=== PATIENT | female | born 1945 | race Two or more races ===

== ENCOUNTER 2020-07-04 06:39 | Outpatient (REF) | payer MEDICARE, MEDICAID, SELFPAY ==
[2020-07-04 07:20] LABS: MANUAL DIFF FLAG NO
[2020-07-04 07:22] LABS: Basophils Absolute Auto 0.1 X10*3/uL (0.0-0.2); Basophils Percent Auto 0.8 % (0-2); Eosinophils Absolute Auto 0.2 X10*3/uL (0.0-0.4); Eosinophils Percent Auto 2.2 % (0-4); Hematocrit 33.4 % (37-47); Hemoglobin 10.7 g/dl (12.0-16.0); Imm Gran Abs Auto 0.02 X10*3/uL (0.00-0.03); Imm Gran Pct Auto 0.2 % (0.0-0.4); Lymphocytes Absolute Auto 2.2 X10*3/uL (1.2-4.9); Lymphocytes Percent Auto 25.5 % (20-40); Mean Corpuscular Hemoglobin 30.1 pg (27.0-33.0); Mean Corpuscular Volume 94.1 fL (80-98); Mean Platelet Volume 9.2 fL (9.4-12.3); Monocytes Absolute Auto 0.7 X10*3/uL (0.1-1.2); Monocytes Percent Auto 8.3 % (2-11); Neutrophils Absolute Auto 5.5 X10*3/uL (2.0-8.3); Platelet Count 303 X10*3/uL (160-400); Red Blood Count 3.55 X10*6/uL (4.20-5.50); Red Cell Distribution Width 11.7 % (11.0-16.0); White Blood Count 8.8 X10*3/uL (4.8-10.8)
[2020-07-04 07:33] LABS: Estimated Average Glucose 108 mg/dL; Hemoglobin A1c % 5.4 %
[2020-07-04 08:26] LABS: Anion Gap 12 (12-20); Blood Urea Nitrogen 24 mg/dL (9-16); Calcium 9.7 mg/dL (8.4-10.2); Carbon Dioxide 27 mmol/L (22-29); Chloride 106 mmol/L (96-108); Cholesterol 115 mg/dL; Estimated Glomerular Filt Rate 54; Glucose Fasting 123 mg/dL (60-99); HDL Cholesterol 52 mg/dL; LDL Cholesterol Calculated 46 mg/dl; Potassium 5.2 mmol/L (3.3-5.1); Sodium 140 mmol/L (135-145); TSH reflex Free T4 1.08 uIU/mL (0.32-4.0); Triglycerides 85 mg/dL
== END 2020-07-04 06:40 | disposition home or self-care (01) ==
LOC: HO.LAB 06:39
PROVIDERS: Visit Provider Nurse Practitioner Family
DX: I10 Essential (primary) hypertension (principal); E08.59 Diabetes mellitus due to underlying condition with other circulatory complications
CPT/HCPCS: 36415; 80048; 80061; 83036; 84443; 85025

== ENCOUNTER 2021-02-13 06:25 | Outpatient (REF) | payer MEDICARE, MEDICAID, SELFPAY ==
[2021-02-13 07:13] LABS: Hematocrit 31.2 % (37-47); Hemoglobin 9.9 g/dl (12.0-16.0); Mean Corpuscular HGB Conc 31.7 g/dl (31.0-35.0); Mean Corpuscular Hemoglobin 29.6 pg (27.0-33.0); Mean Corpuscular Volume 93.4 fL (80-98); Mean Platelet Volume 9.1 fL (9.4-12.3); Platelet Count 296 X10*3/uL (160-400); Red Blood Count 3.34 X10*6/uL (4.20-5.50); Red Cell Distribution Width 12.8 % (11.0-16.0); White Blood Count 6.8 X10*3/uL (4.8-10.8)
[2021-02-13 07:16] LABS: Appearance Urine CLEAR; Color Urine YELLOW; Glucose Urine UA NEG (NEG); Leukocyte Esterase Urine 1+ (NEG); Nitrite Urine NEG (NEG); PH 5.5 (5.0-8.0); Urine Blood NEG (NEG); Urine Ketones NEG (NEG); Urine Protein NEG (NEG-TRACE)
[2021-02-13 07:37] LABS: RBC Urine 0-2 /HPF (0); Squamous Epithelial Cell Urine 1+ /LPF
[2021-02-13 07:40] LABS: Estimated Average Glucose 111 mg/dL; Hemoglobin A1c % 5.5 %
[2021-02-13 07:47] LABS: Alanine Aminotransferase 14 U/L (0-31); Albumin Level 3.9 g/dL (3.5-5.0); Alkaline Phosphatase 59 U/L (39-117); Anion Gap 12 (12-20); Aspartate Amino Transferase 15 U/L (5-31); Bilirubin Direct 0.3 mg/dL (0.0-0.5); Bilirubin Total 0.5 mg/dL (0.0-1.0); Blood Urea Nitrogen 25 mg/dL (9-16); Calcium 9.1 mg/dL (8.4-10.2); Carbon Dioxide 26 mmol/L (22-29); Chloride 108 mmol/L (96-108); Cholesterol 105 mg/dL; Estimated Glomerular Filt Rate 54; Glucose Random 114 mg/dL (60-115); HDL Cholesterol 48 mg/dL; LDL Cholesterol Calculated 43 mg/dl; Potassium 5.2 mmol/L (3.3-5.1); Sodium 141 mmol/L (135-145); Total Protein 6.5 g/dL (6.5-8.0); Triglycerides 72 mg/dL
[2021-02-13 08:02] LABS: Thyroid Stimulating Hormone 2.48 uIU/mL (0.32-4.0)
[2021-02-13 08:48] LABS: Erythrocyte Sedimentation Rate 18 MM/HR (0-20)
[2021-02-17 14:02] LABS: Vitamin D 25-OH, D2 <4 ng/mL; Vitamin D 25-OH, D3 30 ng/mL; Vitamin D 25-OH, Total 30 ng/mL (30-100)
== END 2021-02-13 06:26 | disposition home or self-care (01) ==
LOC: HO.LAB 06:25
PROVIDERS: PCP Internal Medicine; Visit Provider Internal Medicine
DX: E03.9 Hypothyroidism, unspecified (principal); E08.59 Diabetes mellitus due to underlying condition with other circulatory complications; E78.00 Pure hypercholesterolemia, unspecified; I10 Essential (primary) hypertension
CPT/HCPCS: 36415; 80048; 80061; 80076; 81001; 82306; 83036; 84443; 85027; 85652

== ENCOUNTER 2021-03-15 06:11 | Outpatient (REF) | payer MEDICARE, MEDICAID, SELFPAY ==
[2021-03-15 06:17] LABS: MANUAL DIFF FLAG NO
[2021-03-15 07:34] LABS: Appearance Urine CLEAR; Color Urine YELLOW; Glucose Urine UA NEG (NEG); Leukocyte Esterase Urine 2+ (NEG); Nitrite Urine NEG (NEG); Urine Blood NEG (NEG); Urine Ketones NEG (NEG); Urine Protein NEG (NEG-TRACE)
[2021-03-15 07:36] LABS: Basophils Absolute Auto 0.1 X10*3/uL (0.0-0.2); Basophils Percent Auto 0.7 % (0-2); Eosinophils Absolute Auto 0.4 X10*3/uL (0.0-0.4); Eosinophils Percent Auto 4.4 % (0-4); Hematocrit 33.2 % (37-47); Hemoglobin 10.9 g/dl (12.0-16.0); Imm Gran Abs Auto 0.03 X10*3/uL (0.00-0.03); Imm Gran Pct Auto 0.4 % (0.0-0.4); Immature Retic Fraction 8.9 % (3.0-15.9); Lymphocytes Absolute Auto 2.5 X10*3/uL (1.2-4.9); Lymphocytes Percent Auto 30.8 % (20-40); Mean Corpuscular HGB Conc 32.8 g/dl (31.0-35.0); Mean Corpuscular Hemoglobin 29.7 pg (27.0-33.0); Mean Corpuscular Volume 90.5 fL (80-98); Mean Platelet Volume 9.4 fL (9.4-12.3); Monocytes Absolute Auto 0.9 X10*3/uL (0.1-1.2); Monocytes Percent Auto 10.5 % (2-11); Neutrophils Absolute Auto 4.4 X10*3/uL (2.0-8.3); Neutrophils Percent Auto 53.2 % (45-73); Platelet Count 321 X10*3/uL (160-400); Red Blood Count 3.67 X10*6/uL (4.20-5.50); Red Cell Distribution Width 12.3 % (11.0-16.0); Retic HGB Equivalent 33.7 pg (30.0-35.0); Reticulocyte Percent 1.1 % (0.5-1.8); Reticulocytes Absolute 0.039 X10*6/uL (0.026-0.095); White Blood Count 8.2 X10*3/uL (4.8-10.8)
[2021-03-15 07:46] LABS: RBC Urine 0-2 /HPF (0); Renal Epithelial Cells Urine 1+ /LPF; Squamous Epithelial Cell Urine TRACE /LPF
[2021-03-15 07:50] LABS: Alanine Aminotransferase 13 U/L (0-31); Albumin Level 4.3 g/dL (3.5-5.0); Alkaline Phosphatase 58 U/L (39-117); Anion Gap 16 (12-20); Aspartate Amino Transferase 18 U/L (5-31); Bilirubin Total 0.4 mg/dL (0.0-1.0); Blood Urea Nitrogen 35 mg/dL (9-16); Calcium 9.9 mg/dL (8.4-10.2); Carbon Dioxide 24 mmol/L (22-29); Chloride 105 mmol/L (96-108); Estimated Glomerular Filt Rate 45; Glucose Fasting 117 mg/dL (60-99); Potassium 5.6 mmol/L (3.3-5.1); Sodium 139 mmol/L (135-145); Total Protein 7.4 g/dL (6.5-8.0)
== END 2021-03-15 06:12 | disposition home or self-care (01) ==
LOC: HO.LAB 06:11
PROVIDERS: PCP Internal Medicine; Visit Provider Nurse Practitioner Family
DX: D64.9 Anemia, unspecified (principal); I10 Essential (primary) hypertension; E78.00 Pure hypercholesterolemia, unspecified
CPT/HCPCS: 36415; 80053; 81001; 81003; 85025; 85045

== ENCOUNTER 2021-03-20 06:15 | Outpatient (REF) | payer MEDICARE, MEDICAID, SELFPAY ==
[2021-03-20 07:39] LABS: Appearance Urine CLEAR; Color Urine STRAW; Glucose Urine UA NEG (NEG); Leukocyte Esterase Urine 2+ (NEG); Nitrite Urine NEG (NEG); PH 5.5 (5.0-8.0); Specific Gravity - Urine <= 1.005 (1.005-1.025); Urine Blood NEG (NEG); Urine Ketones NEG (NEG); Urine Protein NEG (NEG-TRACE)
[2021-03-20 07:49] LABS: Potassium 5.4 mmol/L (3.3-5.1)
[2021-03-20 08:03] LABS: Bacteria Urine TRACE /LPF; RBC Urine 0-2 /HPF (0); Squamous Epithelial Cell Urine 1+ /LPF
== END 2021-03-20 06:16 | disposition home or self-care (01) ==
LOC: HO.LAB 06:15
PROVIDERS: Nurse Practitioner Family; PCP Internal Medicine; Visit Provider Internal Medicine
DX: E87.5 Hyperkalemia (principal)
CPT/HCPCS: 36415; 81001; 84132

== ENCOUNTER 2021-06-07 15:36 | Outpatient (REF) | payer MEDICARE, MEDICAID, SELFPAY ==
--- NOTE | ~2021-06-07 | XR_ITS ---
EXAMINATION: XR CHEST CLINICAL INFORMATION: Covid infection COMPARISON: None TECHNIQUE: 2 views of the chest were obtained. FINDINGS: The cardiac and mediastinal contours are normal. There is minimal linear scarring or subsegmental atelectasis at the left lung base. The lungs are otherwise clear. There is no pleural effusion or pneumothorax. There are mild degenerative changes of the spine curvature of the lower thoracic spine to the left. XR/XR chest 2V IMPRESSION: No evidence for acute disease in the chest. Minimal scarring or subsegmental atelectasis at the left lung base.
== END 2021-06-07 15:37 | disposition home or self-care (01) ==
LOC: HO.XRAY 15:36
PROVIDERS: Visit Provider Internal Medicine
DX: U07.1 COVID-19 (principal)
CPT/HCPCS: 71046

== ENCOUNTER 2021-09-11 05:56 | Outpatient (REF) | payer MEDICARE, MEDICAID, SELFPAY ==
[2021-09-11 08:38] LABS: Color Urine YELLOW; Glucose Urine UA NEG (NEG); Leukocyte Esterase Urine 3+ (NEG); Nitrite Urine NEG (NEG); PH 5.5 (5.0-8.0); Urine Blood NEG (NEG); Urine Ketones NEG (NEG); Urine Protein NEG (NEG-TRACE)
[2021-09-11 08:40] LABS: Appearance Urine HAZY
[2021-09-11 08:54] LABS: RBC Urine 0 /HPF (0)
[2021-09-11 08:55] LABS: Bacteria Urine TRACE /LPF; Squamous Epithelial Cell Urine 1+ /LPF
[2021-09-11 08:56] LABS: Mucus Urine 1+ /LPF; Renal Epithelial Cells Urine 1+ /LPF
== END 2021-09-11 05:57 | disposition home or self-care (01) ==
LOC: HO.LAB 05:56
PROVIDERS: PCP Internal Medicine; Visit Provider Internal Medicine
DX: I10 Essential (primary) hypertension (principal); E78.00 Pure hypercholesterolemia, unspecified; E03.9 Hypothyroidism, unspecified; E08.59 Diabetes mellitus due to underlying condition with other circulatory complications
CPT/HCPCS: 81001

== ENCOUNTER 2021-12-19 06:32 | Outpatient (REF) | payer MEDICARE, MEDICAID, SELFPAY ==
[2021-12-19 07:32] LABS: Hematocrit 30.4 % (37.0-47.0); Mean Corpuscular HGB Conc 32.9 g/dl (31.0-35.0); Mean Corpuscular Hemoglobin 30.6 pg (27.0-33.0); Mean Platelet Volume 9.3 fL (9.4-12.3); Platelet Count 311 X10*3/uL (160-400); Red Blood Count 3.27 X10*6/uL (4.20-5.50); Red Cell Distribution Width 12.3 % (11.0-16.0); White Blood Count 7.8 X10*3/uL (4.8-10.8)
[2021-12-19 07:42] LABS: Estimated Average Glucose 114 mg/dL; Hemoglobin A1c % 5.6 %
[2021-12-19 07:55] LABS: Anion Gap 13 (12-20); Blood Urea Nitrogen 26 mg/dL (9-16); Calcium 8.9 mg/dL (8.4-10.2); Carbon Dioxide 25 mmol/L (22-29); Chloride 105 mmol/L (96-108); Cholesterol 117 mg/dL; Estimated Glomerular Filt Rate 56; Glucose Random 118 mg/dL (60-115); HDL Cholesterol 51 mg/dL; LDL Cholesterol Calculated 54 mg/dl; Potassium 5.5 mmol/L (3.3-5.1); Sodium 137 mmol/L (135-145); Triglycerides 62 mg/dL
[2021-12-19 08:20] LABS: Thyroid Stimulating Hormone 1.84 uIU/mL (0.32-4.0)
[2021-12-19 08:59] LABS: Appearance Urine CLEAR; Color Urine YELLOW; Glucose Urine UA NEG (NEG); Leukocyte Esterase Urine 1+ (NEG); Nitrite Urine NEG (NEG); PH 5.5 (5.0-8.0); Specific Gravity - Urine <= 1.005 (1.005-1.025); Urine Blood NEG (NEG); Urine Ketones NEG (NEG); Urine Protein NEG (NEG-TRACE)
[2021-12-19 09:10] LABS: Bacteria Urine TRACE /LPF; RBC Urine 0 /HPF (0); Renal Epithelial Cells Urine TRACE /LPF; Squamous Epithelial Cell Urine 1+ /LPF
[2021-12-19 09:26] LABS: Creatinine Urine 35.62 mg/dL
== END 2021-12-19 06:33 | disposition home or self-care (01) ==
LOC: HO.LAB 06:32
PROVIDERS: PCP Internal Medicine; Visit Provider Internal Medicine
DX: D64.9 Anemia, unspecified (principal); E11.65 Type 2 diabetes mellitus with hyperglycemia
CPT/HCPCS: 36415; 80048; 80061; 81001; 81003; 82043; 83036; 84443; 85027

== ENCOUNTER 2022-06-22 06:07 | Outpatient (REF) | payer MEDICARE, MEDICAID, SELFPAY ==
[2022-06-22 07:54] LABS: Appearance Urine Clear; Color Urine Yellow; Glucose Urine UA Negative (Negative); Leukocyte Esterase Urine Trace (Negative); Nitrite Urine Negative (Negative); PH 7.5 (5.0-9.0); Specific Gravity - Urine <= 1.005 (1.005-1.025); UMIC TRIGGER UA YES; Urine Blood Negative (Negative); Urine Ketones Negative (Negative); Urine Protein Negative (Neg-Trace)
[2022-06-22 07:57] LABS: Bacteria Urine None Seen (None Seen); Hyaline Casts Urine 0-2 /LPF (0-2); RBC Urine 0-2 /HPF (0-2); Squamous Epithelial Cell Urine 0-2 /HPF (0-2); WBC Urine 0-5 /HPF (0-5)
== END 2022-06-22 06:08 | disposition home or self-care (01) ==
LOC: HO.LAB 06:07
PROVIDERS: PCP Internal Medicine; Visit Provider Internal Medicine
DX: E11.65 Type 2 diabetes mellitus with hyperglycemia (principal); D64.9 Anemia, unspecified
CPT/HCPCS: 81001

== ENCOUNTER 2022-12-19 07:44 | Outpatient (REF) | payer OTHER, MEDICAID, SELFPAY ==
[2022-12-19 08:33] LABS: Hematocrit 35.8 % (37.0-47.0); Hemoglobin 11.4 g/dl (12.0-16.0); Mean Corpuscular HGB Conc 31.8 g/dl (31.0-35.0); Mean Corpuscular Hemoglobin 29.3 pg (27.0-33.0); Mean Platelet Volume 8.9 fL (9.4-12.3); Platelet Count 312 X10*3/uL (160-400); Red Blood Count 3.89 X10*6/uL (4.20-5.50); Red Cell Distribution Width 12.1 % (11.0-16.0)
[2022-12-19 09:14] LABS: Alanine Aminotransferase 13 U/L (0-31); Albumin Level 4.2 g/dL (3.5-5.0); Alkaline Phosphatase 49 U/L (39-117); Anion Gap 15 (12-20); Aspartate Amino Transferase 19 U/L (5-31); Bilirubin Direct 0.2 mg/dL (0.0-0.5); Bilirubin Total 0.5 mg/dL (0.0-1.0); Blood Urea Nitrogen 31 mg/dL (9-16); Calcium 9.7 mg/dL (8.4-10.2); Carbon Dioxide 27 mmol/L (22-29); Chloride 103 mmol/L (96-108); Cholesterol 132 mg/dL; Estimated Glomerular Filt Rate 44; Glucose Random 115 mg/dL (60-115); HDL Cholesterol 54 mg/dL; LDL Cholesterol Calculated 65 mg/dl; Potassium 5.8 mmol/L (3.3-5.1); Sodium 139 mmol/L (135-145); Total Protein 7.6 g/dL (6.5-8.0); Triglycerides 68 mg/dL
[2022-12-19 09:18] LABS: Thyroid Stimulating Hormone 1.24 uIU/mL (0.32-4.0)
[2022-12-19 11:17] LABS: Creatinine Urine 73.97 mg/dL
== END 2022-12-19 07:45 | disposition home or self-care (01) ==
LOC: HO.LAB 07:44
PROVIDERS: PCP Internal Medicine; Visit Provider Internal Medicine
DX: E11.65 Type 2 diabetes mellitus with hyperglycemia (principal)
CPT/HCPCS: 36415; 80048; 80061; 80076; 82043; 84443; 85027

== ENCOUNTER 2023-01-03 10:41 | Outpatient (AMB) | payer OTHER, SELFPAY ==
--- NOTE | 2023-01-03 10:47 | MHC.PC.OV ---
Vital Signs 01/03/23 10:49 Height 4 ft 11 in Weight 104 lb 2 oz BMI 21.0 BP 100/60 Blood Pressure Location Lt brachial Position Sitting Pulse 67 Pulse Source Pulse Oximeter Pulse Oximetry (%) 98 Oxygen Delivery Method Room Air Intake Visit Reasons: F/U Intake Note: Patient is here to follow up on DM, HTN, Hypothyroidism. Receiving Dock Checker Required: Yes Receiving Dock Checker Language: Field Enumerator Name: Jessica (Shanon) Information Interpreted: non-clinical & clinical Flame Channeler: Present Accompanied by: Daughter Allergies No Known Allergies Allergy (Verified 01/22/23 15:26) Medication List - Last Reconciled 01/22/23 by Wilfredo Cole MD amlodipine 5 mg PO DAILY ascorbic acid (vitamin C) 500 mg PO DAILY atorvastatin 20 mg PO DAILY blood sugar diagnostic ([employer] Ultra Test strips) test daily blood-glucose meter ([employer] Ultra2 Meter) test daily carvedilol 25 mg PO BID cholecalciferol (vitamin D3) 25 mcg PO DAILY clonidine HCl 0.1 mg PO BID hydralazine 100 mg PO TID isosorbide mononitrate ER 120 mg PO DAILY levothyroxine 50 mcg PO DAILY lisinopril 20 mg PO BID 3 months mecobalamin (vitamin B12) 1,000 mcg sublingual DAILY metformin 1,000 mg (2 x 500 mg) PO BID Tobacco use date assessed: 01/03/23 Fall risk assessment: No Falls in past year Last assessed Fall Risk: 01/03/23 Dental Screening Dental Screen Date: 01/03/23 Did you have a dental visit in the last 12 months?: Yes Did you have a dental problem in the last 6 months where you did not have access to dental care?: No Was dental information given to patient?: Patient has dentist HPI F/U HPI Details 77-year-old female presents to the office to discuss her chronic medical conditions. The last A1c was 5.6 . Non compliant with medications, diet or exercise. Reports no symptoms of headache, blurred vision or increased frequency of urination. No symptoms of fatigue. No nausea or vomiting. [facility] Medical History Diabetes Encounter for medication review High cholesterol Hypertension Hypothyroidism Surgical History History of cataract surgery Family History Mother High blood pressure High cholesterol Thyroid disease Father High blood pressure Thyroid disease Social History Housing: House Alcohol intake: never Patient Tobacco Use Status: Never used Tobacco e-Cigarette/Vaping Use: Never Used Second Hand Smoke Exposure: No service: No Current occupational status: retired Cognitive needs: No Hearing needs: No Vision needs: Yes (glasses) Questionnaire Thrive Questionnaire Date Thrive assessed: 07/04/22 JODIE-7 AMB Questionnaire JODIE-7 Date JODIE - 7 assessed: 07/04/22 Source: Developed by Drs. Domingo Beltrán, Adriana Serrano, Steve De La Cruz and colleagues, with an educational yodit from [employer]. Physical exam (Primary Care) Vital Signs: Last Vital Signs Pulse 67 01/03/23 10:49 BP 100/60 01/03/23 10:49 Pulse Ox 98 01/03/23 10:49 Oxygen Delivery Method Room Air 01/03/23 10:49 BMI result Body Mass Index 21.0 Tobacco/Smoking Status: Tobacco use Status Tobacco use date assessed 01/03/23 01/03/23 11:01 Patient Tobacco Use Status Never used Tobacco 01/03/23 11:01 e-Cigarette/Vaping Use Never Used 01/03/23 11:01 Thrive Assessment: Date of Thrive Assessment Date Thrive assessed 07/04/22 01/03/23 11:01 Const General: cooperative, healthy appearing and comfortable [facility] Head: Yes normal to inspection and Yes atraumatic Eyes General: appearance normal, both eyes and all related structures Neck Neck: Yes normal visual inspection and Yes full ROM Chest Chest palpation & inspection: normal inspection of the chest Resp Effort & Inspection: normal respiratory effort Auscultation: clear to auscultation bilaterally Cardio Jugular venous distension: no JVD Palpation: normal PMI Rate: regular rate Heart sounds: S1 normal heart sound present and S2 normal heart sound present GI Palpation (GI): Soft to palpation and No hepatosplenomegaly present Extrem General: Yes normal to inspection and Yes full ROM Results AMB Hemoglobin A1c AMB Hemoglobin A1c 5.6 % Last Edit by JADE Willingham on 01/03/23 11:01 Results Reviewed Results Reviewed: Laboratory Last Values Hgb A1c (Clinic) 5.6 % (4.0-6.0) 01/03/23 10:47 Assessment and Plan Assessment & Plan (1) Type 2 diabetes mellitus with hyperglycemia: Code(s): E11.65 - Type 2 diabetes mellitus with hyperglycemia Plan A1c is in range. Continue medications at same dosage. Orders: Orders AMB Hemoglobin A1c 01/03/23 E11.65 - Type 2 diabetes mellitus with hyperglycemia, E11.9 - Type 2 diabetes mellitus without complications Coding Level of Care Code Est Pt Level 3 (66322) Diagnoses Type 2 diabetes mellitus with hyperglycemia E11.65
[2023-01-03 10:49] VITALS: BP 100/60; PULSE 67; O2SAT 98; BMI 21.0
== END 2023-01-03 11:29 | disposition home or self-care (01) ==
PROVIDERS: Visit Provider Internal Medicine
DX: E11.65 Type 2 diabetes mellitus with hyperglycemia (principal)
CPT/HCPCS: 83036; 99213

== ENCOUNTER 2023-04-05 15:47 | Outpatient (AMB) | payer OTHER, SELFPAY ==
--- NOTE | 2023-04-05 16:10 | HO.NEPHOV ---
HPI HPI Comments History of Present Illness Details I had the privilege of seeing Shirley in follow-up of her hypertension. She was accompanied by her daughter. Her blood pressure had been well controlled on current medication regimen. She has history of retinopathy. She has no significant proteinuria now. She does not have any orthostatic symptoms, chest pain, shortness of breath, proximal nocturnal dyspnea, orthopnea, pedal edema. She is not taking any nonsteroidal anti-inflammatory medications. She is compliant with her medications and is trying to maintain low-sodium diet. She keeps herself well hydrated. Her blood sugar control is excellent. [facility] Medical History (Updated 04/05/23 @ 16:42 by Edy Lyles MD) Serum potassium elevated Encounter for medication review Diabetes High cholesterol Hypothyroidism Hypertension Surgical History History of cataract surgery Family History Mother High blood pressure High cholesterol Thyroid disease Father High blood pressure Thyroid disease Housing: House Alcohol intake: never Patient Tobacco Use Status: Never used Tobacco e-Cigarette/Vaping Use: Never Used Second Hand Smoke Exposure: No service: No Current occupational status: retired Cognitive needs: No Hearing needs: No Vision needs: Yes (glasses) Vital Signs 04/05/23 16:11 Height 4 ft 11 in Weight 106 lb 2 oz BMI 21.4 BP 170/60 H Blood Pressure Location Lt brachial Position Sitting Pulse 74 Pulse Source Pulse Oximeter Physical Exam Vital Signs: Last Vital Signs Pulse 74 04/05/23 16:11 BP 170/60 H 04/05/23 16:11 BMI result Body Mass Index 21.4 Const General: comfortable and no acute distress Orientation/consciousness: patient oriented x3 HEENT Head: Yes normocephalic Mouth: Normal oral and palatal mucosa present Eyes EOM: EOMs intact bilaterally Neck Neck: Yes supple Resp Auscultation: clear to auscultation bilaterally Cardio Jugular venous distension: no JVD Rate: regular rate GI Palpation (GI): Soft to palpation Auscultation: normal bowel sounds General: Yes no CVA tenderness Back/Spine/Pelvis Back: no CVA tenderness Skin General skin exam: no rashes or lesions noted Neuro General: patient oriented x3 and moves all extremities Extrem General: Yes no pedal edema Assessment & Plan Assessment & Plan (1) Serum potassium elevated: Code(s): E87.5 - Hyperkalemia (2) Hypertension: Code(s): I10 - Essential (primary) hypertension Qualifiers: Hypertension type: essential hypertension Qualified Code(s): I10 - Essential (primary) hypertension Plan Shirley has longstanding hypertension. Her blood pressure is well controlled now. She is tolerating medications well. She does not have any significant proteinuria. She has retinopathy but no clinical signs of heart failure. She has history of hyperkalemia. I have asked to repeat her renal functions, electrolytes and urine protein creatinine ratio. I did not make any medication changes today. All her and her daughter's questions were answered. Follow-up appointment was given. Time spent for retrieval of data, patient encounter and documentation 21 minutes. Orders: Orders Electrolytes 04/05/23 N18.30 - Chronic kidney disease, stage 3 unspecified, E87.5 - Hyperkalemia, I10 - Essential (primary) hypertension Creatinine 04/05/23 N18.30 - Chronic kidney disease, stage 3 unspecified, E87.5 - Hyperkalemia, I10 - Essential (primary) hypertension Protein Creatinine Ratio, Ur 04/05/23 N18.30 - Chronic kidney disease, stage 3 unspecified, E87.5 - Hyperkalemia, I10 - Essential (primary) hypertension Calcium 04/05/23 N18.30 - Chronic kidney disease, stage 3 unspecified, E87.5 - Hyperkalemia, I10 - Essential (primary) hypertension Blood Urea Nitrogen 04/05/23 N18.30 - Chronic kidney disease, stage 3 unspecified, E87.5 - Hyperkalemia, I10 - Essential (primary) hypertension Coding Level of Care Code Est Pt Level 3 (68809) Diagnoses Serum potassium elevated E87.5 Essential hypertension I10 Hypertension type: essential hypertension
[2023-04-05 16:11] VITALS: BP 170/60; PULSE 74; BMI 21.4
== END 2023-04-05 16:43 | disposition home or self-care (01) ==
PROVIDERS: PCP Internal Medicine; Visit Provider Internal Medicine Nephrology
DX: E87.5 Hyperkalemia (principal); I10 Essential (primary) hypertension
CPT/HCPCS: 99213

== ENCOUNTER → 2023-04-05 15:47 | Outpatient (BNVA) | payer OTHER, SELFPAY | PROVIDERS: PCP Internal Medicine; Visit Provider Internal Medicine Nephrology | DX: E78.5 Hyperlipidemia, unspecified (principal); I10 Essential (primary) hypertension | CPT/HCPCS: 99212 ==

== ENCOUNTER 2023-04-11 14:21 | Outpatient (AMB) | payer OTHER, MEDICAID, SELFPAY ==
--- NOTE | 2023-04-11 14:27 | MHC.PC.OV ---
Vital Signs 04/11/23 14:28 Height 4 ft 11 in Weight 104 lb 6 oz BMI 21.1 BP 90/50 L Blood Pressure Location Lt brachial Position Sitting Pulse 67 Pulse Source Pulse Oximeter Pulse Oximetry (%) 97 Oxygen Delivery Method Room Air Intake Visit Reasons: 3mth f/u Intake Note: Patient is here to follow up on DM, CKD, HTN. Tassel Making Machine Operator Required: Yes Tassel Making Machine Operator Language: Dinkey Operator Slag Name: Jessica (daughter) Information Interpreted: non-clinical & clinical Reject Opener: Present Accompanied by: Daughter Allergies No Known Allergies Allergy (Verified 04/11/23 14:28) Tobacco use date assessed: 04/11/23 Fall risk assessment: No Falls in past year Last assessed Fall Risk: 04/11/23 Dental Screening Dental Screen Date: 04/11/23 Did you have a dental visit in the last 12 months?: Yes Did you have a dental problem in the last 6 months where you did not have access to dental care?: No Was dental information given to patient?: Patient has dentist HPI 3mth f/u HPI Details 77-year-old female presents to the office to discuss her chronic medical conditions. She is accompanied by her daughter. Patient is at baseline state of health. Able to function and do activities of daily living. She is able to do most of her work independently. [facility] Medical History (Updated 04/05/23 @ 16:42 by Edy Lyles MD) Serum potassium elevated Encounter for medication review Diabetes High cholesterol Hypothyroidism Hypertension Surgical History History of cataract surgery Family History Mother High blood pressure High cholesterol Thyroid disease Father High blood pressure Thyroid disease Social History Housing: House Alcohol intake: never Patient Tobacco Use Status: Never used Tobacco e-Cigarette/Vaping Use: Never Used Second Hand Smoke Exposure: No service: No Current occupational status: retired Cognitive needs: No Hearing needs: No Vision needs: Yes (glasses) Questionnaire PHQ-9 Over the last 2 weeks, how often have you been bothered by any of the following problems? Depression Screening Interpretation: Negative Depression Screening Done: Yes Source: Developed by Drs. Domingo Beltrán, Adriana Serrano, Steve De La Cruz and colleagues, with an educational yodit from [employer]. Thrive Questionnaire Date Thrive assessed: 07/04/22 Currently or been in a relationship where the following occur: no concerns reported JODIE-7 AMB Questionnaire JODIE-7 Date JODIE - 7 assessed: 07/04/22 Source: Developed by Adriana Gay, Steve De La Cruz and colleagues, with an educational yodit from [employer]. Physical exam (Primary Care) Vital Signs: Last Vital Signs Pulse 67 04/11/23 14:28 BP 90/50 L 04/11/23 14:28 Pulse Ox 97 04/11/23 14:28 Oxygen Delivery Method Room Air 04/11/23 14:28 Care Plan Goal for BP management: Blood pressure is in range. BMI result Body Mass Index 21.1 Tobacco/Smoking Status: Tobacco use Status Tobacco use date assessed 04/11/23 04/11/23 14:39 Patient Tobacco Use Status Never used Tobacco 04/11/23 14:39 e-Cigarette/Vaping Use Never Used 04/11/23 14:39 Depression Screening Interpretation: Negative Thrive Assessment: Date of Thrive Assessment Date Thrive assessed 07/04/22 04/11/23 14:39 Currently or been in a relationship where the following occur: no concerns reported Advance Care Planning discussion: Exists, not on file Date of discussion: 04/11/23 Who was present: Patient and daughter. Time spent: 1-15 minutes, not on file Const General: cooperative and healthy appearing Nutritional Appearance: well nourished Orientation/consciousness: patient oriented x3 Limitations: no limitations HENMT Head: Yes normal to inspection Eyes General: appearance normal, both eyes and all related structures Neck Neck: Yes normal visual inspection Chest Chest palpation & inspection: normal palpation of entire chest wall Resp Effort & Inspection: normal respiratory effort Neuro General: patient oriented x3 Office Procedures Flu Questionnaire Does the patient have a severe egg allergy?: No Does the patient have severe life threatening allergies?: No Does the patient have a fever or illness today?: No Has the patient ever had Guillain-[place] Syndrome?: No Has the patient ever had any past reaction to a flu shot?: No Results AMB Hemoglobin A1c AMB Hemoglobin A1c 5.0 % Last Edit by JADE Willingham on 04/11/23 14:41 Immunizations flu vacc [id number] 6mos up(PF) 60 mcg(15 mcgx4)/0.5 mL IM syringe Performing Provider: Wilfredo Cole MD Performing Location: [facility] Administered by: SHAYY Gomez on 04/11/23 14:59 Dose Route Admin Location Dispensed Lot Number Expiration Date NDC Manager Management 0.5 mL IM Left Deltoid 0.5 mL [id number] 11/24/23 44309-008-18 [place] VIS Given Date VIS Provided VIS Publication Date 04/11/23 Single Vaccine 20 Eligibility Eligibility Date Funding Source Not VFC Eligible 04/11/23 Private Results Reviewed Results Reviewed: Laboratory Last Values Hgb A1c (Clinic) 5.0 % (4.0-6.0) 04/11/23 14:26 Assessment and Plan Assessment & Plan (1) Diabetes: Code(s): E11.9 - Type 2 diabetes mellitus without complications Qualifiers: Diabetes mellitus type: due to underlying condition Diabetes mellitus nursing home insulin use: without nursing home use Diabetes mellitus complication status: with circulatory complication Diabetes mellitus complication detail: with other circulatory complications Qualified Code(s): E08.59 - 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 Continue medications at same dosage. Continues to decline screening colonoscopy and mammograms. Orders: Orders AMB Hemoglobin A1c Today E11.65 - Type 2 diabetes mellitus with hyperglycemia Influenza [id number] Immunization Today Z23 - Encounter for immunization Coding Level of Care Code Est Pt Level 4 (82580) Diagnoses Diabetes mellitus due to underlying condition with other circulatory complication, without long-term current use of insulin E08.59 Diabetes mellitus type: due to underlying condition Diabetes mellitus local intermodal truck driver insulin use: without nursing home use Diabetes mellitus complication status: with circulatory complication Diabetes mellitus complication detail: with other circulatory complications Additional Codes Vital Signs *Quality* - Advance Care Planning discussion: Exists, not on file ([id number]) Vital Signs *Quality* - Time spent: 1-15 minutes, not on file ([id number])
[2023-04-11 14:28] VITALS: BP 90/50; PULSE 67; O2SAT 97; BMI 21.1
== END 2023-04-11 15:08 | disposition home or self-care (01) ==
PROVIDERS: PCP Internal Medicine; Visit Provider Internal Medicine
DX: E11.65 Type 2 diabetes mellitus with hyperglycemia (principal); Z23 Encounter for immunization; Z00.00 Encounter for general adult medical examination without abnormal findings
CPT/HCPCS: 1124F; 83036; 90471; 90686; 99214

== ENCOUNTER 2023-06-28 06:06 | Outpatient (REF) | payer OTHER, SELFPAY ==
[2023-06-28 08:02] LABS: Anion Gap 16 (12-20); Blood Urea Nitrogen 24 mg/dL (9-16); Calcium 9.4 mg/dL (8.4-10.2); Carbon Dioxide 25 mmol/L (22-29); Chloride 105 mmol/L (96-108); Estimated Glomerular Filt Rate 46; Potassium 4.7 mmol/L (3.3-5.1); Sodium 141 mmol/L (135-145)
[2023-06-28 09:04] LABS: Total Protein Urine Random 30 mg/dL (<12)
== END 2023-06-28 06:07 | disposition home or self-care (01) ==
LOC: HO.LAB 06:06
PROVIDERS: PCP Internal Medicine; Visit Provider Internal Medicine Nephrology
DX: I12.9 Hypertensive chronic kidney disease with stage 1 through stage 4 chronic kidney disease, or unspecified chronic kidney disease (principal); N18.30 Chronic kidney disease, stage 3 unspecified; E87.5 Hyperkalemia
CPT/HCPCS: 36415; 80051; 82310; 82565; 82570; 84156; 84520

== ENCOUNTER 2023-07-05 15:30 | Outpatient (AMB) | payer OTHER, SELFPAY ==
[2023-07-05 15:48] VITALS: BP 128/70; PULSE 78; O2SAT 96; BMI 21.0
--- NOTE | 2023-07-05 15:48 | HO.NEPHOV_ITS ---
HPI HPI Comments History of Present Illness Details I had the privilege of seeing Shirley in follow-up of her hypertension. She was accompanied by her daughter. Her blood pressure had been well controlled on current medication regimen. She has history of retinopathy. She has no significant proteinuria now. She does not have any orthostatic symptoms, chest pain, shortness of breath, proximal nocturnal dyspnea, orthopnea, pedal edema. She is not taking any nonsteroidal anti-inflammatory medications. She is compliant with her medications and is trying to maintain low-sodium diet. She keeps herself well hydrated. Her blood sugar control is excellent. Her hyperkalemia has resolved. Her renal function is at baseline. She is off ACEI now and has proteinuria. [facility] Medical History (Updated 07/08/23 @ 13:13 by Edy Lyles MD) Serum potassium elevated Encounter for medication review Diabetes High cholesterol Hypothyroidism Hypertension Surgical History History of cataract surgery Family History Mother High blood pressure High cholesterol Thyroid disease Father High blood pressure Thyroid disease Social History Housing: House Alcohol intake: never Patient Tobacco Use Status: Never used Tobacco e-Cigarette/Vaping Use: Never Used Second Hand Smoke Exposure: No service: No Current occupational status: retired Cognitive needs: No Hearing needs: No Vision needs: Yes (glasses) Vital Signs 07/05/23 15:48 Height 4 ft 11 in Weight 104 lb 2 oz BMI 21.0 BP 128/70 Blood Pressure Location Lt brachial Position Sitting Pulse 78 Pulse Source Pulse Oximeter Pulse Oximetry (%) 96 Oxygen Delivery Method Room Air Physical Exam Vital Signs: Last Vital Signs Pulse 78 07/05/23 15:48 BP 128/70 07/05/23 15:48 Pulse Ox 96 07/05/23 15:48 Oxygen Delivery Method Room Air 07/05/23 15:48 BMI result Body Mass Index 21.0 Const General: comfortable and no acute distress Orientation/consciousness: patient oriented x3 HEENT Head: Yes normocephalic Mouth: Normal oral and palatal mucosa present Eyes EOM: EOMs intact bilaterally Neck Neck: Yes supple Resp Auscultation: clear to auscultation bilaterally Cardio Jugular venous distension: no JVD Rate: regular rate GI Palpation (GI): Soft to palpation Auscultation: normal bowel sounds General: Yes no CVA tenderness Back/Spine/Pelvis Back: no CVA tenderness Skin General skin exam: no rashes or lesions noted Neuro General: patient oriented x3 and moves all extremities Extrem General: Yes no pedal edema Assessment & Plan Assessment & Plan (1) CKD (chronic kidney disease) stage 3, GFR 30-59 ml/min: Code(s): N18.30 - Chronic kidney disease, stage 3 unspecified Qualifiers: Chronic kidney disease stage 3 subtype: stage 3a (GFR 45-59) Qualified Code(s): N18.31 - Chronic kidney disease, stage 3a (2) Diabetic nephropathy: Code(s): E11.21 - Type 2 diabetes mellitus with diabetic nephropathy Qualifiers: Diabetes mellitus type: type 2 Qualified Code(s): E11.21 - Type 2 diabetes mellitus with diabetic nephropathy (3) Hypertension: Code(s): I10 - Essential (primary) hypertension Qualifiers: Hypertension type: essential hypertension Qualified Code(s): I10 - Essential (primary) hypertension Plan Shirley has longstanding hypertension. Her blood pressure is well controlled now. She is tolerating medications well. She does have significant proteinuria. She has retinopathy but no clinical signs of heart failure. She has history of hyperkalemia which has been resolved. She is off ACEI. Her BS and BP are at goal now. I plan to reintroduce ACEI with K lowering medication at the next visit. I have asked to repeat her renal functions, electrolytes and urine protein creatinine ratio. I did not make any medication changes today. All her and her daughter's questions were answered. Follow-up appointment was given. Orders: Orders Blood Urea Nitrogen 07/05/23 N18.30 - Chronic kidney disease, stage 3 unspecified Creatinine 07/05/23 N18.30 - Chronic kidney disease, stage 3 unspecified Electrolytes 07/05/23 N18.30 - Chronic kidney disease, stage 3 unspecified Coding Level of Care Code Est Pt Level 3 (69442) Diagnoses Stage 3a chronic kidney disease N18.31 Chronic kidney disease stage 3 subtype: stage 3a (GFR 45-59) Diabetic nephropathy associated with type 2 diabetes mellitus E11.21 Diabetes mellitus type: type 2 Essential hypertension I10 Hypertension type: essential hypertension Results Reviewed Nephrology Results: Hgb 11.4 g/dl (12.0-16.0) L 12/19/22 WBC 7.0 X10*3/uL (4.8-10.8) 12/19/22 Plt Count 312 X10*3/uL (160-400) 12/19/22 Sodium 141 mmol/L (135-145) 06/28/23 Potassium 4.7 mmol/L (3.3-5.1) 06/28/23 Chloride 105 mmol/L (96-108) 06/28/23 Carbon Dioxide 25 mmol/L (22-29) 06/28/23 BUN 24 mg/dL (9-16) H 06/28/23 Creatinine 1.14 mg/dL (0.5-1.4) 06/28/23 Calcium 9.4 mg/dL (8.4-10.2) 06/28/23 Urine Protein Negative mg/dL (Neg-Trace) 06/22/22 Urine Creatinine 14.30 mg/dL 06/28/23 Protein/Creatinin Ratio 2.10 (<0.2) H 06/28/23
== END 2023-07-05 16:15 | disposition home or self-care (01) ==
PROVIDERS: PCP Internal Medicine; Visit Provider Internal Medicine Nephrology
DX: N18.31 Chronic kidney disease, stage 3a (principal); E11.21 Type 2 diabetes mellitus with diabetic nephropathy; I10 Essential (primary) hypertension
CPT/HCPCS: 99213

== ENCOUNTER → 2023-07-05 15:30 | Outpatient (BNVA) | payer OTHER, SELFPAY | PROVIDERS: PCP Internal Medicine; Visit Provider Internal Medicine Nephrology | DX: E11.21 Type 2 diabetes mellitus with diabetic nephropathy (principal); E11.22 Type 2 diabetes mellitus with diabetic chronic kidney disease; I12.9 Hypertensive chronic kidney disease with stage 1 through stage 4 chronic kidney disease, or unspecified chronic kidney disease; N18.31 Chronic kidney disease, stage 3a | CPT/HCPCS: 99212 ==

== ENCOUNTER 2023-10-10 14:57 | Outpatient (AMB) | payer OTHER, MEDICAID, SELFPAY ==
--- NOTE | 2023-10-10 15:20 | A.OFFPC_ITS ---
Vital Signs 10/10/23 15:24 10/10/23 15:30 Height 4 ft 11 in Weight 103 lb 6 oz BMI 20.9 BP 150/60 H 132/70 Blood Pressure Location Lt brachial Lt brachial Position Sitting Sitting Pulse 66 Pulse Source Pulse Oximeter Pulse Oximetry (%) 98 Oxygen Delivery Method Room Air Intake Visit Reasons: 6mth f/u Intake Note: Patient is here to follow up on CKD, DM, HTN, Hypothyroidism. Mutuel Teller Required: Yes Mutuel Teller Language: Acquisition Professional Name: Jessica (daughter) Information Interpreted: non-clinical & clinical Clinical Program Manager: Present Accompanied by: Daughter Allergies No Known Allergies Allergy (Verified 10/11/23 10:43) Medication List - Last Reconciled 10/11/23 by Wilfredo Cole MD amlodipine 5 mg PO DAILY ascorbic acid (vitamin C) 500 mg PO DAILY atorvastatin 20 mg PO DAILY blood sugar diagnostic (OneTouch Ultra Test strips) test daily blood-glucose meter (Spotjournaluch Ultra2 Meter) test daily carvedilol 25 mg PO BID cholecalciferol (vitamin D3) 25 mcg PO DAILY clonidine HCl 0.1 mg PO BID hydralazine 100 mg PO TID isosorbide mononitrate ER 120 mg PO DAILY levothyroxine 50 mcg PO DAILY mecobalamin (vitamin B12) 1,000 mcg sublingual DAILY metformin 1,000 mg (2 x 500 mg) PO BID sodium polystyrene sulfonate PO Tobacco use date assessed: 10/10/23 Fall risk assessment: No Falls in past year Last assessed Fall Risk: 10/10/23 Dental Screening Dental Screen Date: 10/10/23 Did you have a dental visit in the last 12 months?: Yes Did you have a dental problem in the last 6 months where you did not have access to dental care?: No Was dental information given to patient?: Patient has dentist HPI 6mth f/u HPI Details 78 yr old female presents to the office to discuss her chronic medical conditions. She is accompanied by her daughter who is speaking on her behalf. Patient does not speak Swedish. Requesting test strips. Patient is at baseline state of health. Able to function and do all her ADL's. Does not drive nor does she leave the house without supervision. Can take her shower independently, eat independently, sleeps well. No confusion and able to have conversations on the phone. [facility] Medical History Serum potassium elevated Encounter for medication review Diabetes High cholesterol Hypothyroidism Hypertension Surgical History History of cataract surgery Family History Mother High blood pressure High cholesterol Thyroid disease Father High blood pressure Thyroid disease Social History Housing: House Alcohol intake: never Patient Tobacco Use Status: Never used Tobacco e-Cigarette/Vaping Use: Never Used Second Hand Smoke Exposure: No service: No Current occupational status: retired Cognitive needs: No Hearing needs: No Vision needs: Yes (glasses) Questionnaire PHQ-9 Over the last 2 weeks, how often have you been bothered by any of the following problems? 1. Little interest or pleasure in doing things: not at all 2. Feeling down, depressed, or hopeless: not at all 3. Trouble falling or staying asleep, or sleeping too much: not at all 4. Feeling tired or having little energy: not at all 5. Poor appetite or overeating: not at all 6. Feeling bad about yourself - or that you are a failure or have let yourself or your family down: not at all 7. Trouble concentrating on things, such as reading the newspaper or watching television: not at all 8. Moving or speaking so slowly that other people could have noticed. Or the opposite - being so fidgety or restless that you have been moving around a lot more than usual: not at all 9. Thoughts that you would be better off or of hurting yourself in some way: not at all Total score: 0 Depression Screening Interpretation: Negative Depression Screening Done: Yes Source: Developed by Drs. Domingo Beltrán, Adriana Serrano, Steve De La Cruz and colleagues, with an educational yodit from [employer]. Thrive Questionnaire Date Thrive assessed: 10/10/23 I am a: Patient What is your living situation today?: I have a steady place to live Within the past 12 months, did the food you bought not last and you didn't have the money to get more?: Never true Within the past 12 months, did you worry whether your food would run out before you got money to buy more?: Never true Do you have trouble paying for medicines?: No Do you have trouble getting transportation to medical appointments?: No Do you have trouble paying your heating and electricity bill?: No Do you have trouble taking care of your child, family member or friend?: No Do you have trouble with day-to-day activities such as bathing, preparing meals, shopping, managing finances, etc.?: No Are you currently unemployed and looking for a job?: No Are you interested in more education?: No Currently or been in a relationship where the following occur: no concerns reported THRIVE Score: 0 AUDIT C Alcohol Use Questionnaire (AUDIT-C) 1. How often do you have a drink containing alcohol?: Never Total Score: 0 JODIE-7 AMB Questionnaire JODIE-7 Date JODIE - 7 assessed: 10/10/23 Feeling nervous, anxious, or on edge: 0 = Not at all Not being able to stop or control worryin = Not at all Worrying too much about different things: 0 = Not at all Trouble relaxin = Not at all Being so restless that it is hard to sit still: 0 = Not at all Becoming easily annoyed or irritable: 0 = Not at all Feeling afraid as if something awful might happen: 0 = Not at all Total JODIE-7 score (0-4 normal; 5-9 mild; 10-14 moderate; 15-21 severe): 0 Source: Developed by Drs. Domingo Beltrán, Adriana Serrano, Steve De La Cruz and colleagues, with an educational yodit from [employer]. Physical exam (Primary Care) Vital Signs: Last Vital Signs Pulse 66 10/10/23 15:24 BP 132/70 10/10/23 15:30 Pulse Ox 98 10/10/23 15:24 Oxygen Delivery Method Room Air 10/10/23 15:24 Care Plan Goal for BP management: BP is in range. Continue current medications. BMI result Body Mass Index 20.9 Tobacco/Smoking Status: Tobacco use Status Tobacco use date assessed 10/10/23 10/10/23 15:31 Patient Tobacco Use Status Never used Tobacco 10/10/23 15:31 e-Cigarette/Vaping Use Never Used 10/10/23 15:31 PHQ-9: PHQ-9 Score PHQ-9: Total score 0 10/10/23 15:31 Depression Screening Interpretation: Negative Thrive Assessment: Date of Thrive Assessment Date Thrive assessed 10/10/23 10/10/23 15:31 Currently or been in a relationship where the following occur: no concerns reported Advance Care Planning discussion: Exists, not on file Date of discussion: 10/10/23 Who was present: patient and daughter Forms completed: MOLST Time spent: 1-15 minutes, not on file Actual minutes spent: 5 Const General: cooperative and healthy appearing Nutritional Appearance: well nourished Orientation/consciousness: patient oriented x3 Limitations: no limitations HENMT Head: Yes normal to inspection Eyes General: appearance normal, both eyes and all related structures Neck Neck: Yes normal visual inspection Chest Chest palpation & inspection: normal palpation of entire chest wall Resp Effort & Inspection: normal respiratory effort Neuro General: patient oriented x3 Results AMB Hemoglobin A1c AMB Hemoglobin A1c 5.8 % Last Edit by JADE Willingham on 10/10/23 15:41 Results Reviewed Results Reviewed: Laboratory Last Values Hgb A1c (Clinic) 5.8 % (4.0-6.0) 10/10/23 15:20 Assessment and Plan Assessment & Plan (1) Type 2 diabetes mellitus with hyperglycemia: Code(s): E11.65 - Type 2 diabetes mellitus with hyperglycemia Plan: A1c is in range. Continue current medications. (2) CKD (chronic kidney disease) stage 3, GFR 30-59 ml/min: Code(s): N18.30 - Chronic kidney disease, stage 3 unspecified Qualifiers: Chronic kidney disease stage 3 subtype: stage 3a (GFR 45-59) Qualified Code(s): N18.31 - Chronic kidney disease, stage 3a Plan: Condition is stable. Continue current medications (3) Hypothyroidism: Code(s): E03.9 - Hypothyroidism, unspecified Qualifiers: Hypothyroidism type: acquired Qualified Code(s): E03.9 - Hypothyroidism, unspecified Plan: Euthyroid. Continue meds at same dosage. (4) Hypertension: Code(s): I10 - Essential (primary) hypertension Qualifiers: Hypertension type: essential hypertension Qualified Code(s): I10 - Essential (primary) hypertension Plan: BP in range Orders: Orders AMB Hemoglobin A1c 10/10/23 E11.65 - Type 2 diabetes mellitus with hyperglycemia Medications: Refilled blood sugar diagnostic (Spotjournaluch Ultra Test strips) test daily 100 ea 5RF E11.65 - Type 2 diabetes mellitus with hyperglycemia Coding Level of Care Code Est Pt Level 4 (16868) Diagnoses Type 2 diabetes mellitus with hyperglycemia E11.65 Stage 3a chronic kidney disease N18.31 Chronic kidney disease stage 3 subtype: stage 3a (GFR 45-59) Acquired hypothyroidism E03.9 Hypothyroidism type: acquired Essential hypertension I10 Hypertension type: essential hypertension Additional Codes Vital Signs *Quality* - Advance Care Planning discussion: Exists, not on file ([id number]) Vital Signs *Quality* - Time spent: 1-15 minutes, not on file ([id number])
[2023-10-10 15:24] VITALS: BP 150/60; PULSE 66; O2SAT 98; BMI 20.9
[2023-10-10 15:30] VITALS: BP 132/70
== END 2023-10-10 16:32 | disposition home or self-care (01) ==
PROVIDERS: PCP Internal Medicine; Visit Provider Internal Medicine
DX: E11.65 Type 2 diabetes mellitus with hyperglycemia (principal)
CPT/HCPCS: 1124F; 83036; 99214

== ENCOUNTER 2023-11-01 15:35 | Outpatient (AMB) | payer OTHER, SELFPAY ==
--- NOTE | 2023-11-01 15:40 | HO.NEPHOV_ITS ---
Vital Signs 11/01/23 15:42 Height 4 ft 11 in Weight 105 lb 2 oz BMI 21.2 BP 142/60 H Blood Pressure Location Rt brachial Position Sitting Pulse 64 Pulse Source Pulse Oximeter Pulse Oximetry (%) 96 Oxygen Delivery Method Room Air Intake Visit Reasons: 4 mon follow up/ LVM Intake Note: Assault Amphibious Vehicle Officer services refused, refusal form signed and scanned into chart. Assault Amphibious Vehicle Officer Required: Yes Assault Amphibious Vehicle Officer Name: Jessica Staples (daughter) Accompanied by: Daughter Allergies No Known Allergies Allergy (Verified 11/01/23 15:47) HPI Comments Details: I had the privilege of seeing Shirley in follow-up of her hypertension. She was accompanied by her 2 daughters. Her blood pressure had been well controlled on current medication regimen. She has history of retinopathy. She does not have any orthostatic symptoms, chest pain, shortness of breath, proximal nocturnal dyspnea, orthopnea, pedal edema. She is not taking any nonsteroidal anti-inflammatory medications. She is compliant with her medications and is trying to maintain low-sodium diet. She keeps herself well hydrated. Her blood sugar control is excellent. Her hyperkalemia has resolved. Her renal function is at baseline. She is off ACEI now and has proteinuria. [facility] Medical History Serum potassium elevated Encounter for medication review Diabetes High cholesterol Hypothyroidism Hypertension Surgical History History of cataract surgery Family History Mother High blood pressure High cholesterol Thyroid disease Father High blood pressure Thyroid disease Social History Housing: House Alcohol intake: never Patient Tobacco Use Status: Never used Tobacco e-Cigarette/Vaping Use: Never Used Second Hand Smoke Exposure: No service: No Current occupational status: retired Cognitive needs: No Hearing needs: No Vision needs: Yes (glasses) Review of Systems Const All systems reviewed & are unremarkable except as noted in HPI and below Physical Exam Vital Signs: Last Vital Signs Pulse 64 11/01/23 15:42 BP 142/60 H 11/01/23 15:42 Pulse Ox 96 11/01/23 15:42 Oxygen Delivery Method Room Air 11/01/23 15:42 BMI result Body Mass Index 21.2 Const General: comfortable and no acute distress Orientation/consciousness: patient oriented x3 HEENT Head: Yes normocephalic Mouth: Normal oral and palatal mucosa present Eyes EOM: EOMs intact bilaterally Neck Neck: Yes supple Resp Auscultation: clear to auscultation bilaterally Cardio Jugular venous distension: no JVD Rate: regular rate GI Palpation (GI): Soft to palpation Auscultation: normal bowel sounds General: Yes no CVA tenderness Back/Spine/Pelvis Back: no CVA tenderness Skin General skin exam: no rashes or lesions noted Neuro General: patient oriented x3 and moves all extremities Extrem General: Yes no pedal edema Results Reviewed Nephrology Results: Hgb 11.4 g/dl (12.0-16.0) L 12/19/22 WBC 7.0 X10*3/uL (4.8-10.8) 12/19/22 Plt Count 312 X10*3/uL (160-400) 12/19/22 Sodium 141 mmol/L (135-145) 06/28/23 Potassium 4.7 mmol/L (3.3-5.1) 06/28/23 Chloride 105 mmol/L (96-108) 06/28/23 Carbon Dioxide 25 mmol/L (22-29) 06/28/23 BUN 24 mg/dL (9-16) H 06/28/23 Creatinine 1.14 mg/dL (0.5-1.4) 06/28/23 Calcium 9.4 mg/dL (8.4-10.2) 06/28/23 Urine Protein Negative mg/dL (Neg-Trace) 06/22/22 Urine Creatinine 14.30 mg/dL 06/28/23 Assessment & Plan Assessment & Plan (1) Hypertension: Code(s): I10 - Essential (primary) hypertension Category: Medical Qualifiers: Hypertension type: essential hypertension Qualified Code(s): I10 - Essential (primary) hypertension (2) CKD (chronic kidney disease) stage 3, GFR 30-59 ml/min: Code(s): N18.30 - Chronic kidney disease, stage 3 unspecified Category: Medical Qualifiers: Chronic kidney disease stage 3 subtype: stage 3a (GFR 45-59) Qualified Code(s): N18.31 - Chronic kidney disease, stage 3a (3) Diabetic nephropathy: Code(s): E11.21 - Type 2 diabetes mellitus with diabetic nephropathy Category: Medical Qualifiers: Diabetes mellitus type: type 2 Qualified Code(s): E11.21 - Type 2 diab etes mellitus with diabetic nephropathy Plan Shirley has longstanding hypertension. Her blood pressure is well controlled now. She is tolerating medications well. She does have significant proteinuria. She has retinopathy but no clinical signs of heart failure. She has history of hyperkalemia which has been resolved. She is off ACEI. Her BS and BP are at goal now. I plan to start her on Jardiance at next visit and reintroduce ACEI with K lowering medication. I did not make any medication changes today. All her and her daughter's questions were answered. Follow-up appointment was given. Orders: Orders Electrolytes 11/01/23 E11.21 - Type 2 diabetes mellitus with diabetic nephropathy, I10 - Essential (primary) hypertension, N18.31 - Chronic kidney disease, stage 3a Protein Creatinine Ratio, Ur 11/01/23 E11.21 - Type 2 diabetes mellitus with diabetic nephropathy, I10 - Essential (primary) hypertension, N18.31 - Chronic kidney disease, stage 3a Creatinine 11/01/23 E11.21 - Type 2 diabetes mellitus with diabetic nephropathy, I10 - Essential (primary) hypertension, N18.31 - Chronic kidney disease, stage 3a Blood Urea Nitrogen 11/01/23 E11.21 - Type 2 diabetes mellitus with diabetic nephropathy, I10 - Essential (primary) hypertension, N18.31 - Chronic kidney disease, stage 3a Coding Level of Care Code Est Pt Level 4 (40182) Diagnoses Essential hypertension I10 Hypertension type: essential hypertension Stage 3a chronic kidney disease N18.31 Chronic kidney disease stage 3 subtype: stage 3a (GFR 45-59) Diabetic nephropathy associated with type 2 diabetes mellitus E11.21 Diabetes mellitus type: type 2
[2023-11-01 15:42] VITALS: BP 142/60; PULSE 64; O2SAT 96; BMI 21.2
== END 2023-11-01 16:10 | disposition home or self-care (01) ==
PROVIDERS: PCP Internal Medicine; Visit Provider Internal Medicine Nephrology
DX: I10 Essential (primary) hypertension (principal); N18.31 Chronic kidney disease, stage 3a; E11.21 Type 2 diabetes mellitus with diabetic nephropathy
CPT/HCPCS: 99214

== ENCOUNTER → 2023-11-01 15:35 | Outpatient (BNVA) | payer OTHER, SELFPAY | PROVIDERS: PCP Internal Medicine; Visit Provider Internal Medicine Nephrology | DX: E11.21 Type 2 diabetes mellitus with diabetic nephropathy (principal); I12.9 Hypertensive chronic kidney disease with stage 1 through stage 4 chronic kidney disease, or unspecified chronic kidney disease; N18.31 Chronic kidney disease, stage 3a | CPT/HCPCS: 99212 ==

== ENCOUNTER 2024-02-20 06:07 | Outpatient (REF) | payer OTHER, SELFPAY ==
[2024-02-20 06:58] LABS: Anion Gap 12 (12-20); Blood Urea Nitrogen 27 mg/dL (9-16); Carbon Dioxide 28 mmol/L (22-29); Chloride 106 mmol/L (96-108); Estimated Glomerular Filt Rate 45; Potassium 5.1 mmol/L (3.3-5.1); Sodium 141 mmol/L (135-145)
[2024-02-20 08:05] LABS: Creatinine Urine 40.98 mg/dL; Total Protein Urine Random 8 mg/dL (<12)
== END 2024-02-20 06:08 | disposition home or self-care (01) ==
LOC: HO.LAB 06:07
PROVIDERS: PCP Internal Medicine; Visit Provider Internal Medicine Nephrology
DX: N18.30 Chronic kidney disease, stage 3 unspecified (principal); E11.21 Type 2 diabetes mellitus with diabetic nephropathy; N18.31 Chronic kidney disease, stage 3a; I10 Essential (primary) hypertension
CPT/HCPCS: 36415; 80051; 82565; 82570; 84156; 84520

== ENCOUNTER 2024-02-28 15:35 | Outpatient (AMB) | payer OTHER, SELFPAY ==
[2024-02-28 15:36] VITALS: BP 130/60; PULSE 71; O2SAT 97; BMI 21.3
--- NOTE | 2024-02-28 15:36 | HO.NEPHOV ---
Vital Signs 02/28/24 15:36 Height 4 ft 11 in Weight 105 lb 6 oz BMI 21.3 BP 130/60 Blood Pressure Location Rt brachial Position Sitting Pulse 71 Pulse Source Pulse Oximeter Pulse Oximetry (%) 97 Oxygen Delivery Method Room Air Intake Visit Reasons: CKD/4 MO FU/ Conf Frame Sample And Pattern Supervisor Required: Yes Frame Sample And Pattern Supervisor Services: Frame Sample And Pattern Supervisor Offered & Declined ([facility] Frame Sample And Pattern Supervisor services refused) Accompanied by: Daughter Allergies No Known Allergies Allergy (Verified 02/28/24 15:40) HPI Comments Details: I had the privilege of seeing Shirley in follow-up of her hypertension. She was accompanied by her daughter. Her blood pressure had been well controlled on current medication regimen. She has history of retinopathy. She does not have any orthostatic symptoms, chest pain, shortness of breath, proximal nocturnal dyspnea, orthopnea, pedal edema. She is not taking any nonsteroidal anti-inflammatory medications. She is compliant with her medications and is trying to maintain low-sodium diet. She keeps herself well hydrated. Her blood sugar control is excellent. Her hyperkalemia has resolved. Her renal function is at baseline. [facility] Medical History Serum potassium elevated Encounter for medication review Diabetes High cholesterol Hypothyroidism Hypertension Surgical History History of cataract surgery Family History Mother High blood pressure High cholesterol Thyroid disease Father High blood pressure Thyroid disease Social History Housing: House Alcohol intake: never Patient Tobacco Use Status: Never used Tobacco e-Cigarette/Vaping Use: Never Used Second Hand Smoke Exposure: No service: No Current occupational status: retired Cognitive needs: No Hearing needs: No Vision needs: Yes (glasses) Physical Exam Vital Signs: Last Vital Signs Pulse 71 02/28/24 15:36 BP 170/70 H 02/28/24 15:36 Pulse Ox 97 02/28/24 15:36 Oxygen Delivery Method Room Air 02/28/24 15:36 BMI result Body Mass Index 21.3 Const General: comfortable and no acute distress Orientation/consciousness: patient oriented x3 HEENT Head: Yes normocephalic Mouth: Normal oral and palatal mucosa present Eyes EOM: EOMs intact bilaterally Neck Neck: Yes supple Resp Auscultation: clear to auscultation bilaterally Cardio Jugular venous distension: no JVD Rate: regular rate GI Palpation (GI): Soft to palpation Auscultation: normal bowel sounds General: Yes no CVA tenderness Back/Spine/Pelvis Back: no CVA tenderness Skin General skin exam: no rashes or lesions noted Neuro General: patient oriented x3 and moves all extremities Extrem General: Yes no pedal edema Results Reviewed Nephrology Results: Hgb 11.4 g/dl (12.0-16.0) L 12/19/22 WBC 7.0 X10*3/uL (4.8-10.8) 12/19/22 Plt Count 312 X10*3/uL (160-400) 12/19/22 Sodium 141 mmol/L (135-145) 02/20/24 Potassium 5.1 mmol/L (3.3-5.1) 02/20/24 Chloride 106 mmol/L (96-108) 02/20/24 Carbon Dioxide 28 mmol/L (22-29) 02/20/24 BUN 27 mg/dL (9-16) H 02/20/24 Creatinine 1.17 mg/dL (0.5-1.4) 02/20/24 Calcium 9.4 mg/dL (8.4-10.2) 06/28/23 Urine Creatinine 40.98 mg/dL 02/20/24 Protein/Creatinin Ratio 0.20 (<0.2) 02/20/24 Assessment & Plan Assessment & Plan (1) Diabetic nephropathy: Code(s): E11.21 - Type 2 diabetes mellitus with diabetic nephropathy Category: Medical Qualifiers: Diabetes mellitus type: type 2 Qualified Code(s): E11.21 - Type 2 diabetes mellitus with diabetic nephropathy (2) CKD (chronic kidney disease) stage 3, GFR 30-59 ml/min: Code(s): N18.30 - Chronic kidney disease, stage 3 unspecified Category: Medical Qualifiers: Chronic kidney disease stage 3 subtype: stage 3a (GFR 45-59) Qualified Code(s): N18.31 - Chronic kidney disease, stage 3a (3) Hypertension: Code(s): I10 - Essential (primary) hypertension Category: Medical Qualifiers: Hypertension type: essential hypertension Qualified Code(s): I10 - Essential (primary) hypertension Plan Shirley has longstanding hypertension. Her blood pressure is well controlled now. She is tolerating medications well. She does have significant proteinuria. She has retinopathy but no clinical signs of heart failure. She has history of hyperkalemia which has been resolved. She is off ACEI. Her BS and BP are at goal now. She is a graet candidate for [employer]. I did not make any medication changes today. All her and her daughter's questions were answered. Follow-up appointment was given Orders: Orders Creatinine 4 Months N18.31 - Chronic kidney disease, stage 3a Blood Urea Nitrogen 4 Months N18.31 - Chronic kidney disease, stage 3a Electrolytes 4 Months N18.31 - Chronic kidney disease, stage 3a Coding Level of Care Code Est Pt Level 4 (73164) Diagnoses 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
== END 2024-02-28 15:54 | disposition home or self-care (01) ==
PROVIDERS: PCP Internal Medicine; Visit Provider Internal Medicine Nephrology
DX: I12.9 Hypertensive chronic kidney disease with stage 1 through stage 4 chronic kidney disease, or unspecified chronic kidney disease (principal); E11.22 Type 2 diabetes mellitus with diabetic chronic kidney disease; N18.31 Chronic kidney disease, stage 3a
CPT/HCPCS: 99214

== ENCOUNTER → 2024-02-28 15:35 | Outpatient (BNVA) | payer OTHER, SELFPAY | PROVIDERS: PCP Internal Medicine; Visit Provider Internal Medicine Nephrology | DX: I12.9 Hypertensive chronic kidney disease with stage 1 through stage 4 chronic kidney disease, or unspecified chronic kidney disease (principal); E11.21 Type 2 diabetes mellitus with diabetic nephropathy; E11.22 Type 2 diabetes mellitus with diabetic chronic kidney disease; N18.31 Chronic kidney disease, stage 3a | CPT/HCPCS: 99212 ==

== ENCOUNTER 2024-04-16 14:54 | Outpatient (AMB) | payer OTHER, SELFPAY ==
--- NOTE | 2024-04-16 15:09 | A.OFFPC_ITS ---
Vital Signs 04/16/24 15:10 Height 4 ft 11 in Weight 105 lb 8 oz BMI 21.3 BP 140/70 H Blood Pressure Location Lt brachial Position Sitting Pulse 72 Pulse Source Pulse Oximeter Pulse Oximetry (%) 97 Oxygen Delivery Method Room Air Intake Visit Reasons: 6mof\u Intake Note: Patient is here to follow up on DM, CKD, HTN, Hypothyroidism. Freezer Tunnel Operator Required: Yes Freezer Tunnel Operator Language: Escrow Assistant Name: Jessica (daughter) Information Interpreted: non-clinical & clinical Superintendent Warehouse: Present Accompanied by: Daughter Allergies No Known Allergies Allergy (Verified 04/20/24 06:05) Medication List - Last Reconciled 04/20/24 by Wilfredo Cole MD amlodipine 5 mg PO DAILY ascorbic acid (vitamin C) 500 mg PO DAILY atorvastatin 20 mg PO DAILY blood sugar diagnostic (ProsettaTouch Ultra Test strips) test daily blood-glucose meter (Sport/Lifeuch Ultra2 Meter) test daily carvedilol 25 mg PO BID cholecalciferol (vitamin D3) 25 mcg PO DAILY clonidine HCl 0.1 mg PO BID hydralazine 100 mg PO TID isosorbide mononitrate ER 120 mg PO DAILY levothyroxine 50 mcg PO DAILY mecobalamin (vitamin B12) 1,000 mcg sublingual DAILY metformin 1,000 mg (2 x 500 mg) PO BID sodium polystyrene sulfonate PO Tobacco use date assessed: 04/16/24 Fall risk assessment: No Falls in past year Last assessed Fall Risk: 04/16/24 Dental Screening Dental Screen Date: 10/10/23 HPI 6mof\u HPI Details 78-year-old female presents to the offic e to discuss her chronic medical conditions. Patient has a family member with her who is translating. Patient reports she is at baseline state of health. Able to function and do her activities of daily living. Reports no symptoms of pain. Compliant with medications. Has already received her flu vaccine. Patient is able to take care of her personal hygiene, including showering and changing clothes independently. Sleep patterns are regular. No history of urinary incontinence. [facility] Medical History (Updated 04/20/24 @ 06:09 by Wilfredo Cole MD) Serum potassium elevated Encounter for medication review High cholesterol Hypothyroidism Hypertension Surgical History History of cataract surgery Family History Mother High blood pressure High cholesterol Thyroid disease Father High blood pressure Thyroid disease Social History Housing: House Alcohol intake: never Patient Tobacco Use Status: Never used Tobacco e-Cigarette/Vaping Use: Never Used Second Hand Smoke Exposure: No service: No Current occupational status: retired Cognitive needs: No Hearing needs: No Vision needs: Yes (glasses) Questionnaire Thrive Questionnaire Date Thrive assessed: 10/10/23 AUDIT C Alcohol Use Questionnaire (AUDIT-C) 2. How many drinks containing alcohol do you have on a typical day when you are drinking?: 1 or 2 3. How often do you have six or more drinks on one occasion?: Monthly Total Score: 2 JODIE-7 AMB Questionnaire JODIE-7 Date JODIE - 7 assessed: 10/10/23 Source: Developed by Drs. Domingo Beltrán, Adriana Serrano, Steve De La Cruz and colleagues, with an educational yodit from [employer] Physical exam (Primary Care) Vital Signs: Last Vital Signs Pulse 72 04/16/24 15:10 BP 140/70 H 04/16/24 15:10 Pulse Ox 97 04/16/24 15:10 Oxygen Delivery Method Room Air 04/16/24 15:10 BMI result Body Mass Index 21.3 Tobacco/Smoking Status: Tobacco use Status Tobacco use date assessed 04/16/24 04/16/24 15:33 Patient Tobacco Use Status Never used Tobacco 04/16/24 15:33 e-Cigarette/Vaping Use Never Used 04/16/24 15:33 Thrive Assessment: Date of Thrive Assessment Date Thrive assessed 10/10/23 04/16/24 15:33 Const General: cooperative and healthy appearing Nutritional Appearance: well nourished Orientation/consciousness: patient oriented x3 Limitations: no limitations HENMT Head: Yes normal to inspection Eyes General: appearance normal, both eyes and all related structures Neck Neck: Yes normal visual inspection Chest Chest palpation & inspection: normal palpation of entire chest wall Resp Effort & Inspection: normal respiratory effort Neuro General: patient oriented x3 Results AMB Hemoglobin A1c AMB Hemoglobin A1c 5.8 % Last Edit by JADE Willingham on 04/16/24 15:38 Results Reviewed Results Reviewed: Laboratory Last Values Hgb A1c (Clinic) 5.8 % (4.0-6.0) 04/16/24 15:09 Coding Level of Care Code Est Pt Level 4 (09548) Complex EM visit Add On G2211 Diagnoses Essential hypertension I10 Hypertension type: essential hypertension Type 2 diabetes mellitus with hyperglycemia E11.65 Acquired hypothyroidism E03.9 Hypothyroidism type: acquired Assessment & Plan Assessment & Plan (1) Hypertension: Code(s): I10 - Essential (primary) hypertension Category: Medical Qualifiers: Hypertension type: essential hypertension Qualified Code(s): I10 - Essential (primary) hypertension Plan: Blood pressure is 140/70. Advised patient to take medications at the same dosage. (2) Type 2 diabetes mellitus with hyperglycemia: Code(s): E11.65 - Type 2 diabetes mellitus with hyperglycemia Category: Medical Plan: A1c is in range. Continue medications at same dosage. (3) Hypothyroidism: Code(s): E03.9 - Hypothyroidism, unspecified Category: Medical Qualifiers: Hypothyroidism type: acquired Qualified Code(s): E03.9 - Hypothyroidism, unspecified Plan: TSH was reviewed. Continue Synthroid dosage at same dosage. Orders: Orders AMB Hemoglobin A1c 04/16/24 E11.65 - Type 2 diabetes mellitus with hyperglycemia
[2024-04-16 15:10] VITALS: BP 140/70; PULSE 72; O2SAT 97; BMI 21.3
== END 2024-04-16 16:06 | disposition home or self-care (01) ==
PROVIDERS: PCP Internal Medicine; Visit Provider Internal Medicine
DX: I10 Essential (primary) hypertension (principal); E11.65 Type 2 diabetes mellitus with hyperglycemia; E03.9 Hypothyroidism, unspecified

== ENCOUNTER → 2024-04-16 14:54 | Outpatient (BNVA) | payer OTHER, SELFPAY | PROVIDERS: PCP Internal Medicine; Visit Provider Internal Medicine | DX: I10 Essential (primary) hypertension (principal); E11.65 Type 2 diabetes mellitus with hyperglycemia; E03.9 Hypothyroidism, unspecified | CPT/HCPCS: 83036; 99212 ==

== ENCOUNTER 2024-06-30 06:18 | Outpatient (REF) | payer OTHER, SELFPAY ==
--- OUTSIDE RECORDS SUMMARY | 2024-06-30 06:20 | XMS_ITS | Clinical Summary ---
Author Organization [facility] Address [address] [address] [place] [address] Phone Care Team Providers Care Ordnance Equipment Worker Name Role Phone Unavailable Primary Care Provider Unavailabl e Allergies No known active allergies Medications amLODIPine (NORVASC) 5 MG tablet Take 1 tablet by mouth 1 (one) time each day Active carvedilol (COREG) 25 MG tablet Take 1 tablet by mouth 2 (two) times a day Active levothyroxine (SYNTHROID, LEVOTHROID) 50 MCG tablet Take 1 tablet by mouth 1 (one) time each day Active lisinopril (PRINIVIL,ZESTRI L) 20 MG tablet Take 1 tablet by mouth 2 (two) times a day 11/28/2016 Active LORazepam (ATIVAN) 0.5 MG tablet Take 1 tablet by mouth 1 (one) time each day Active metFORMIN (FORTAMET) 500 MG 24 hr tablet Take 2 tablets by mouth 2 (two) times a day Active atorvastatin (LIPITOR) 20 MG tablet Take 20 mg by mouth 1 (one) time each day Active ascorbic acid (VITAMIN C) 500 MG tablet Take 500 mg by mouth 1 (one) time each day Active isosorbide mononitrate (IMDUR) 60 MG 24 hr tablet Take 2 tablets (120 mg total) by mouth 1 (one) time each day 180 tablet 3 07/28/2020 Active cloNIDine (CATAPRES) 0.1 MG tablet TAKE 1 TABLET TWICE DAILY 180 tablet 3 04/10/2022 Active hydrALAZINE 100 MG tablet TAKE 1 TABLET THREE TIMES DAILY 270 tablet 3 04/10/2022 Active metFORMIN (GLUCOPHAGE) 500 MG tablet 02/09/2023 Active Cholecalciferol (Vitamin D3) 25 MCG tablet 02/09/2023 Active Active Problems Problem Noted Date Diagnosed Date Hypertension 02/02/2021 Essential hypertension 07/28/2020 Proteinuria 07/28/2020 Renal disorder due to type 2 diabetes mellitus 0 07/28/2020 Family History Medical History Relation Comments Hypertension Father Hypertension Mother Relation Status Comments Father Mother Social History Tobacco Use Types Packs/Day Years Used Date Smoking Tobacco: Never Smokeless Tobacco: Never Tobacco Cessation:Counseling Given: Not Answered Alcohol Use Standard Drinks/Week Comments No 0 (1 standard drink = 0.6 oz pur e alcohol) Comments Unknown Sex and Gender Information Value Date Recorded Sex Assigned at Not on file Legal Sex Female 4:48 PM EST Gender Identity Not on file Sexual Orientation Not on file Last Filed Vital Signs Vital Sign Reading Time Taken Comments Blood Pressure 130/80 02/12/2023 3:44 PM EDT Pulse 71 02/12/2023 3:44 PM EDT Temperature - - Respiratory Rate - - Oxygen Saturation 99% 02/12/2023 3:44 PM EDT Inhaled Oxygen Concentration - - Weight 45.6 kg (100 lb 9.6 oz) 02/12/2023 3:44 P M EDT Height 152.4 cm (5') 02/04/2020 12:01 PM EDT Body Mass Index 19.65 02/04/2020 12:01 PM EDT Plan of Treatment Health Maintenance Due Date Last Done Comments Pneumococcal Vaccine: 65+ Ye ars (1 of 2 - PCV) 09/05/1951 Diabetes: Hemoglobin A1C 06/27/2020 Diabetes: Ophthalmology Exam 06/27/2020 Diabetes: Pedal Pulse Checked 06/27/2020 Diabetes: Sensory Foot Exam 06/27/2020 Diabetes: Visual Foot Exam 06/27/2020 Influenza Vaccine (#1) 2024 Hepatitis B Vaccine Aged Out No longe r eligible based on patient's age to complete this topic Insurance [facility] ([id number]) [place] [address] ([id number])
--- OUTSIDE RECORDS SUMMARY | 2024-06-30 06:20 | XMS_ITS | Clinical Summary ---
[facility] [address] [place] [address] Care Team Providers Care Tag Maker Name Role Phone Unavailable Primary Care Provider Unavailabl e Social History Tobacco Use Types Packs/Day Years Used Date Smoking Tobacco: Never Assessed Sex and Gender Information Value Date Recorded Sex Assigned at Not on file Gender Identity Not on file Sexual Orientation Not on file Plan of Treatment Health Maintenance Due Date Last Done Comments DTaP,Tdap,and Td Vaccines (1 - Tdap) 09/05/1966 Zoster Vaccines (1 of 2) 09/05/1997 Pneumococcal Vaccine: 65+ Ye ars (1 of 1 - PCV) 09/05/2012 RSV Immunization Patients 60 + Years Old (1 - 1-dose 75+ series) 09/05/2022 COVID-19 Vaccine ( - 2023-2 5 season) 2024 Influenza Vaccine (#1) 2024 HIB Vaccines Aged Out No longer eligi ble based on patient's age to complete this topic HPV Vaccines Aged Out No longer eligi ble based on patient's age to complete this topic Hepatitis A Vaccines Aged Out No long er eligible based on patient's age to complete this topic Hepatitis B Vaccines Aged Out No long er eligible based on patient's age to complete this topic IPV Vaccines Aged Out No longer eligi ble based on patient's age to complete this topic MMR Vaccines Aged Out No longer eligi ble based on patient's age to complete this topic Meningococcal ACWY Vaccine Aged Out N o longer eligible based on patient's age to complete this topic RSV Immunization Patients Un nile 20 months Aged Out No longer eligible b ased on patient's age to complete this topic Varicella Vaccines Aged Out No longer eligible based on patient's age to complete this topic
[2024-06-30 07:53] LABS: Anion Gap 16 (12-20); Blood Urea Nitrogen 25 mg/dL (9-16); Carbon Dioxide 25 mmol/L (22-29); Chloride 107 mmol/L (96-108); Estimated Glomerular Filt Rate 49; Potassium 4.9 mmol/L (3.3-5.1); Sodium 143 mmol/L (135-145)
== END 2024-06-30 06:19 | disposition home or self-care (01) ==
LOC: HO.LAB 06:18
PROVIDERS: PCP Internal Medicine; Visit Provider Internal Medicine Nephrology
DX: N18.31 Chronic kidney disease, stage 3a (principal)
CPT/HCPCS: 36415; 80051; 82565; 84520

== ENCOUNTER 2024-07-03 15:35 | Outpatient (AMB) | payer OTHER, SELFPAY ==
--- OUTSIDE RECORDS SUMMARY | 2024-07-03 15:37 | XMS_ITS | Clinical Summary ---
[facility] Address [address] [place] [address] Care Team Providers Care Air Conditioning Coil Assembler Name Role Phone Unavailable Primary Care Provider [...]
--- OUTSIDE RECORDS SUMMARY | 2024-07-03 15:37 | XMS_ITS | Clinical Summary ---
Author Organization [facility] Address [address] [facility] [address] [place] [address] Phone Care Team Providers Care Bed And Breakfast Cook Name Role Phone Unavailable Primary Care Provider [...] patient's age to complete this topic Insurance [facility] ([id number]) [place] [address] ([id number])
--- NOTE | 2024-07-03 16:05 | HO.NEPHOV ---
Vital Signs 07/03/24 16:06 Height 4 ft 11 in Weight 103 lb 6 oz BMI 20.9 BP 142/70 H Blood Pressure Location Lt brachial Position Sitting Pulse 64 Pulse Source Pulse Oximeter Pulse Oximetry (%) 97 Oxygen Delivery Method Room Air Intake Visit Reasons: 4 mon follow up-Conf w/daughter Process Designer Required: Yes Process Designer Language: Cosmetology Instructor Services: Process Designer Offered & Declined [place] [place] Accompanied by: Daughter Allergies No Known Allergies Allergy (Verified 07/03/24 16:05) HPI Comments Details: Shirley was seen in follow-up of her hypertension. She was accompanied by her daughters. Her blood pressure had been well controlled on current medication regimen. She has history of retinopathy. She does not have any orthostatic symptoms, chest pain, shortness of breath, proximal nocturnal dyspnea, orthopnea, pedal edema. She is not taking any nonsteroidal anti-inflammatory medications. She is compliant with her medications and is trying to maintain low-sodium diet. She keeps herself well hydrated. Her blood sugar control is excellent. Her hyperkalemia has resolved. Her renal function is at baseline. [facility] Medical History (Updated 04/20/24 @ 06:09 by Wilfredo Cole MD) Serum potassium elevated Encounter for medication review High cholesterol Hypothyroidism Hypertension Surgical History History of cataract surgery Family History Mother High blood pressure High cholesterol Thyroid disease Father High blood pressure Thyroid disease Social History Housing: House Alcohol intake: never Patient Tobacco Use Status: Never used Tobacco e-Cigarette/Vaping Use: Never Used Second Hand Smoke Exposure: No service: No Current occupational status: retired Cognitive needs: No Hearing needs: No Vision needs: Yes (glasses) Review of Systems Const All systems reviewed & are unremarkable except as noted in HPI and below Physical Exam Vital Signs: Last Vital Signs Pulse 64 07/03/24 16:06 BP 142/70 H 07/03/24 16:06 Pulse Ox 97 07/03/24 16:06 Oxygen Delivery Method Room Air 07/03/24 16:06 BMI result Body Mass Index 20.9 Const General: comfortable and no acute distress Orientation/consciousness: patient oriented x3 HEENT Head: Yes normocephalic Mouth: Normal oral and palatal mucosa present Eyes EOM: EOMs intact bilaterally Neck Neck: Yes supple Resp Auscultation: clear to auscultation bilaterally Cardio Jugular venous distension: no JVD Rate: regular rate GI Palpation (GI): Soft to palpation Auscultation: normal bowel sounds General: Yes no CVA tenderness Back/Spine/Pelvis Back: no CVA tenderness Skin General skin exam: no rashes or lesions noted Neuro General: patient oriented x3 and moves all extremities Extrem General: Yes no pedal edema Results Reviewed Nephrology Results: Sodium 143 mmol/L (135-145) 06/30/24 Potassium 4.9 mmol/L (3.3-5.1) 06/30/24 Chloride 107 mmol/L (96-108) 06/30/24 Carbon Dioxide 25 mmol/L (22-29) 06/30/24 BUN 25 mg/dL (9-16) H 06/30/24 Creatinine 1.09 mg/dL (0.5-1.4) 06/30/24 Calcium 9.4 mg/dL (8.4-10.2) 06/28/23 Urine Creatinine 40.98 mg/dL 02/20/24 Protein/Creatinin Ratio 0.20 (<0.2) 02/20/24 Assessment & Plan Assessment & Plan (1) Diabetic nephropathy: Code(s): E11.21 - Type 2 diabetes mellitus with diabetic nephropathy Category: Medical Qualifiers: Diabetes mellitus type: type 2 Qualified Code(s): E11.21 - Type 2 diabetes mellitus with diabetic nephropathy (2) CKD (chronic kidney disease) stage 3, GFR 30-59 ml/min: Code(s): N18.30 - Chronic kidney disease, stage 3 unspecified Category: Medical Qualifiers: Chronic kidney disease stage 3 subtype: stage 3a (GFR 45-59) Qualified Code(s): N18.31 - Chronic kidney disease, stage 3a (3) Hypertension: Code(s): I10 - Essential (primary) hypertension Category: Medical Qualifiers: Hypertension type: essential hypertension Qualified Code(s): I10 - Essential (primary) hypertension Plan Shirley has longstanding hypertension. Her blood pressure is well controlled now. She is tolerating medications well. She does have significant proteinuria. She has retinopathy but no clinical signs of heart failure. She has history of hyperkalemia which has been resolved. She is off ACEI. Her BS and BP are at goal now. She is a great candidate for Jardiance. I did not make any medication changes today. All her and her daughter's questions were answered. Follow-up appointment was given Orders: Orders Creatinine 3 Months E11.21 - Type 2 diabetes mellitus with diabetic nephropathy, I10 - Essential (primary) hypertension, N18.31 - Chronic kidney disease, stage 3a Blood Urea Nitrogen 3 Months E11.21 - Type 2 diabetes mellitus with diabetic nephropathy, I10 - Essential (primary) hypertension, N18.31 - Chronic kidney disease, stage 3a Electrolytes 3 Months E11.21 - Type 2 diabetes mellitus with diabetic nephropathy, I10 - Essential (primary) hypertension, N18.31 - Chronic kidney disease, stage 3a Coding Level of Care Code Est Pt Level 4 (33665) Diagnoses 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
[2024-07-03 16:06] VITALS: BP 142/70; PULSE 64; O2SAT 97; BMI 20.9
== END 2024-07-03 16:19 | disposition home or self-care (01) ==
PROVIDERS: PCP Internal Medicine; Visit Provider Internal Medicine Nephrology
DX: E11.21 Type 2 diabetes mellitus with diabetic nephropathy (principal); N18.31 Chronic kidney disease, stage 3a; I10 Essential (primary) hypertension
CPT/HCPCS: 99214

== ENCOUNTER → 2024-07-03 15:35 | Outpatient (BNVA) | payer OTHER, SELFPAY | PROVIDERS: PCP Internal Medicine; Visit Provider Internal Medicine Nephrology | DX: I12.9 Hypertensive chronic kidney disease with stage 1 through stage 4 chronic kidney disease, or unspecified chronic kidney disease (principal); E11.22 Type 2 diabetes mellitus with diabetic chronic kidney disease; E11.21 Type 2 diabetes mellitus with diabetic nephropathy; N18.31 Chronic kidney disease, stage 3a | CPT/HCPCS: 99212 ==

== ENCOUNTER 2024-08-12 06:11 | Outpatient (REF) | payer OTHER, SELFPAY | END 2024-08-12 06:12 | disposition home or self-care (01) | LOC: HO.LAB 06:11 | PROVIDERS: PCP Internal Medicine; Visit Provider Internal Medicine Nephrology | DX: Z13.89 Encounter for screening for other disorder (principal) ==

== ENCOUNTER 2024-09-24 14:56 | Outpatient (AMB) | payer OTHER, SELFPAY ==
--- NOTE | 2024-09-24 15:21 | A.OFFPC_ITS ---
Vital Signs 09/24/24 15:23 Height 4 ft 11 in Weight 103 lb 6 oz BMI 20.9 BP 126/62 Blood Pressure Location Lt brachial Position Sitting Pulse 68 Pulse Source Pulse Oximeter Temp 97.3 F Temp Source Temporal Artery Scan Pulse Oximetry (%) 98 Oxygen Delivery Method Room Air Intake Visit Reasons: 3 month f/u Intake Note: Patient is here to follow up on DM, CKD, HTN, Hypothyroidism. Building Custodial Supervisor Required: Yes Building Custodial Supervisor Language: Internal Medicine Hospitalist Name: Jessica (daughter) Information Interpreted: non-clinical & clinical (Pt decline director of surgery service prefer daughter to translate) Manager Completions: Present Accompanied by: Daughter Allergies No Known Allergies Allergy (Verified 09/25/24 11:16) Medication List - Last Reconciled 09/25/24 by Wilfredo Cole MD amlodipine 5 mg PO DAILY ascorbic acid (vitamin C) 500 mg PO DAILY atorvastatin 20 mg PO DAILY blood sugar diagnostic ([employer] Ultra Test strips) test daily blood-glucose meter ([employer] Ultra2 Meter) test daily carvedilol 25 mg PO BID cholecalciferol (vitamin D3) 25 mcg PO DAILY clonidine HCl 0.1 mg PO BID hydralazine 100 mg PO TID isosorbide mononitrate ER 120 mg PO DAILY lancets test blood sugar twice a day levothyroxine 50 mcg PO DAILY mecobalamin (vitamin B12) 1,000 mcg sublingual DAILY metformin 1,000 mg (2 x 500 mg) PO BID sodium polystyrene sulfonate PO Tobacco use date assessed: 09/24/24 Fall risk assessment: No Falls in past year Last assessed Fall Risk: 09/24/24 Dental Screening Dental Screen Date: 09/24/24 Did you have a dental visit in the last 12 months?: No Did you have a dental problem in the last 6 months where you did not have access to dental care?: No Was dental information given to patient?: No [facility] Medical History Serum potassium elevated Encounter for medication review High cholesterol Hypothyroidism Hypertension Surgical History History of cataract surgery Family History Mother High blood pressure High cholesterol Thyroid disease Father High blood pressure Thyroid disease Social History Housing: House Alcohol intake: never Patient Tobacco Use Status: Never used Tobacco e-Cigarette/Vaping Use: Never Used Second Hand Smoke Exposure: No service: No Current occupational status: retired Cognitive needs: No Hearing needs: No Vision needs: Yes (glasses) Questionnaire PHQ-9 Over the last 2 weeks, how often have you been bothered by any of the following problems? 1. Little interest or pleasure in doing things: not at all 2. Feeling down, depressed, or hopeless: not at all 3. Trouble falling or staying asleep, or sleeping too much: not at all 4. Feeling tired or having little energy: not at all 5. Poor appetite or overeating: several days 6. Feeling bad about yourself - or that you are a failure or have let yourself or your family down: not at all 7. Trouble concentrating on things, such as reading the newspaper or watching television: not at all 8. Moving or speaking so slowly that other people could have noticed. Or the opposite - being so fidgety or restless that you have been moving around a lot more than usual: not at all 9. Thoughts that you would be better off or of hurting yourself in some way: not at all Total score: 1 Depression Screening Interpretation: Negative Depression Screening Done: Yes Source: Developed by Drs. Domingo Beltrán, Adriana Serrano, Steve De La Cruz and colleagues, with an educational yodit from food[employer]de. Thrive Questionnaire Date Thrive assessed: 09/22/24 I am a: Patient What is your living situation today?: I have a steady place to live Within the past 12 months, did the food you bought not last and you didn't have the money to get more?: Never true Within the past 12 months, did you worry whether your food would run out before you got money to buy more?: Never true Do you have trouble paying for medicines?: No Do you have trouble getting transportation to medical appointments?: No Do you have trouble paying your heating and electricity bill?: No Do you have trouble taking care of your child, family member or friend?: No Do you have trouble with day-to-day activities such as bathing, preparing meals, shopping, managing finances, etc.?: No Are you currently unemployed and looking for a job?: No Are you interested in more education?: No Please select the resources that you would like help with: None Currently or been in a relationship where the following occur: No concerns rep orted THRIVE Score: 0 AUDIT C Alcohol Use Questionnaire (AUDIT-C) 1. How often do you have a drink containing alcohol?: Never 2. How many drinks containing alcohol do you have on a typical day when you are drinking?: 1 or 2 3. How often do you have six or more drinks on one occasion?: Never Total Score: 0 JODIE-7 AMB Questionnaire JODIE-7 Date JODIE - 7 assessed: 09/24/24 Feeling nervous, anxious, or on edge: 0 = Not at all Not being able to stop or control worryin = Not at all Worrying too much about different things: 0 = Not at all Trouble relaxin = Not at all Being so restless that it is hard to sit still: 0 = Not at all Becoming easily annoyed or irritable: 0 = Not at all Feeling afraid as if something awful might happen: 0 = Not at all Total JODIE-7 score (0-4 normal; 5-9 mild; 10-14 moderate; 15-21 severe): 0 Source: Developed by Drs. Domingo Beltrán, Adriana Serrano, Steve De La Cruz and colleagues, with an educational yodit from [employer]. Physical exam (Primary Care) Vital Signs: Last Vital Signs Temp 97.3 F 09/24/24 15:23 Pulse 68 09/24/24 15:23 BP 126/62 09/24/24 15:23 Pulse Ox 98 09/24/24 15:23 Oxygen Delivery Method Room Air 09/24/24 15:23 BMI result Body Mass Index 20.9 Tobacco/Smoking Status: Tobacco use Status Tobacco use date assessed 09/24/24 09/24/24 15:41 Patient Tobacco Use Status Never used Tobacco 09/24/24 15:41 e-Cigarette/Vaping Use Never Used 09/24/24 15:41 PHQ-9: PHQ-9 Score PHQ-9: Total score 1 09/25/24 09:03 Depression Screening Interpretation: Negative Thrive Assessment: Date of Thrive Assessment Date Thrive assessed 09/22/24 09/24/24 15:41 Currently or been in a relationship where the following occur: No concerns reported Results AMB Hemoglobin A1c AMB Hemoglobin A1c 5.5 % Last Edit by JADE Willingham on 09/24/24 15:49 Results Reviewed Results Reviewed: Laboratory Last Values Hgb A1c (Clinic) 5.5 % (4.0-6.0) 09/24/24 15:21 Coding Level of Care Code Est Pt Level 4 (32923) Complex EM visit Add On G2211 Diagnoses Essential hypertension I10 Hypertension type: essential hypertension Type 2 diabetes mellitus with hyperglycemia E11.65 Assessment & Plan Assessment & Plan (1) Hypertension: Code(s): I10 - Essential (primary) hypertension Category: Medical Qualifiers: Hypertension type: essential hypertension Qualified Code(s): I10 - Essential (primary) hypertension Plan: Blood pressure is in range. Continue meds at same dosage (2) Type 2 diabetes mellitus with hyperglycemia: Code(s): E11.65 - Type 2 diabetes mellitus with hyperglycemia Category: Medical Plan: Blood work has been ordered. Conservative control of blood sugars. Continue meds at same dosage. Plan History of Present Illness The patient is a 79-year-old female presenting with concerns about blood work and nutritional intake. She has experienced issues with completing her blood work due to an absence of order confirmations. Despite multiple attempts, no blood work was conducted due to logistical errors. This issue is especially pertinent considering her diabetic condition, which necessitates regular monitoring of blood parameters. Additionally, the patient reports a decreased appetite, which raises concerns due to her diabetes. There was a query about whether the use of bath salts might affect her management plan related to diabetes. Despite these concerns, the patient is sleeping well and denies any pain. Social History - Multilingual communication noted, indicating Paraguayan and [place]anian proficiency. - No explicit discussion of other social determinants of health. Review of Systems - General: Reports decreased appetite; Denies pain. - Sleep: Reports sleeping well. Physical Exam General: Cooperative and healthy appearing Nutritional Appearance: Well nourished Orientation/consciousness: Patient oriented x3 Limitations: No limitations Head: Normal to inspection General: Appearance normal, both eyes and all related structures Neck: Normal visual inspection Chest: Normal palpation of entire chest wall Respiratory: Patient instructed to breathe; no issues noted. ormal respiratory effort Neurology: Patient oriented x3 Results Plan - Blood work order will be re-entered to resolve completion issues. - Consultation with nursing staff regarding potential dietary supplements and their suitability for diabetic patients. - Instructions for the patient on handling future logistical concerns by contacting me directly. Patient was informed and verbally consented to the use of an ambient scribe for clinic note documentation during this visit. Discussion Notes During the visit, I discussed the issue of incomplete blood work due to logistical errors and committed to resolving this by ensuring the correct order is placed. The significance of regular monitoring for diabetes management was emphasized, and I advised using a specific keyword for future reference to contact me if similar issues arise. We also discussed concerns about decreased appetite and the potential use of bath salts, which I will clarify with nursing staff. Follow-up on these issues was agreed upon. Patient Instructions - Return to the lab once the blood work order is confirmed and complete it as scheduled. - Notify the staff to contact me immediately using the keyword discussed if there are any issues with the lab order. - Follow up on dietary guidance and discuss with the clinical care nurse any supplements or changes. - Report any changes in appetite, sleep, or overall well-being promptly. Orders: Orders AMB Hemoglobin A1c 09/24/24 E11.65 - Type 2 diabetes mellitus with hyperglycemia Basic Metabolic Panel 09/24/24 I10 - Essential (primary) hypertension Liver Panel 09/24/24 I10 - Essential (primary) hypertension UA and rflx microscopic 09/24/24 I10 - Essential (primary) hypertension Hemoglobin A1c 09/24/24 E11.65 - Type 2 diabetes mellitus with hyperglycemia Complete Blood Count no Diff 09/24/24 I10 - Essential (primary) hypertension Lipid Panel 09/24/24 I10 - Essential (primary) hypertension Thyroid Stimulating Hormone 09/24/24 I10 - Essential (primary) hypertension Medications: New lancets test blood sugar twice a day 100 ea 0RF
[2024-09-24 15:23] VITALS: BP 126/62; PULSE 68; TEMP 36.3; O2SAT 98; BMI 20.9
--- OUTSIDE RECORDS SUMMARY | 2024-09-24 16:55 | XMS_ITS | Clinical Summary ---
Author Organization [facility] ity Address [address] [place] [address] Care Team Providers Care Street Light Mechanic Name Role Phone Unavailable Primary Care Provider Unavailabl e Social History Tobacco Use Types Packs/Day Years Used Date Smoking Tobacco: Never Assessed Comments Unknown Sex and Gender Information Value Date Recorded Sex Assigned at Not on file Legal Sex Female 5:46 AM EST Gender Identity Not on file Sexual Orientation Not on file Plan of Treatment Health Maintenance Due Date Last Done Comments DTaP,Tdap,and Td Vaccines (1 - Tdap) 09/05/1966 Pneumococcal Vaccine: 50+ Ye ars (1 of 1 - PCV) 09/05/1997 Zoster Vaccines (1 of 2) 09/05/1997 RSV Immunization Adult Patie nts (1 - 1-dose 75+ series) 09/05/2022 COVID-19 Vaccine (1 - 2023-2 5 season) 2024 Influenza Vaccine (Season Ended) 2025 HIB Vaccines Aged Out No longer eligi [...] patient's age to complete this topic Meningococcal B Vaccine Aged Out No l onger eligible based on patient's age to complete this topic RSV Immunization Patients Un nile 20 months Aged Out No longer eligible b ased on patient's age to complete this topic Varicella Vaccines Aged Out No longer eligible based on patient's age to complete this topic
--- OUTSIDE RECORDS SUMMARY | 2024-09-24 16:55 | XMS_ITS | Clinical Summary ---
Author Organization [facility] Address [address] [place] [address] Phone Care Team Providers Care Promotions Representative Name Role Phone Unavailable Primary Care Provider [...] Due Date Last Done Comments Pneumococcal Vaccine: 50+ Ye ars (1 of 2 - PCV) 09/05/1966 Diabetes: Hemoglobin A1C 06/27/2020 Diabetes: Ophthalmology Exam 06/27/2020 Diabetes: Pedal Pulse Checked 06/27/2020 Diabetes: Sensory Foot Exam 06/27/2020 Diabetes: Visual Foot Exam 06/27/2020 Influenza Vaccine (Season Ended) 2025 Hepatitis B Vaccine Aged Out No longe r eligible based on patient's age to complete this topic Insurance [facility] ([id number]) ([id number])
== END 2024-09-24 16:18 | disposition home or self-care (01) ==
LOC: HO.HMCH 14:56
PROVIDERS: PCP Internal Medicine; Visit Provider Internal Medicine
DX: E11.65 Type 2 diabetes mellitus with hyperglycemia (principal)

== ENCOUNTER → 2024-09-24 14:56 | Outpatient (BNVA) | payer OTHER, SELFPAY | PROVIDERS: PCP Internal Medicine; Visit Provider Internal Medicine | DX: E11.65 Type 2 diabetes mellitus with hyperglycemia (principal); E03.9 Hypothyroidism, unspecified; I10 Essential (primary) hypertension | CPT/HCPCS: 83036; 96127; 99212 ==

== ENCOUNTER 2024-11-17 06:08 | Outpatient (REF) | payer OTHER, SELFPAY ==
[2024-11-17 07:20] LABS: Hematocrit 31.7 % (37.0-47.0); Hemoglobin 10.5 g/dl (12.0-16.0); Mean Corpuscular HGB Conc 33.1 g/dl (31.0-35.0); Mean Corpuscular Hemoglobin 29.9 pg (27.0-33.0); Mean Corpuscular Volume 90.3 fL (80.0-98.0); Mean Platelet Volume 9.1 fL (9.4-12.3); Platelet Count 297 X10*3/uL (160-400); Red Blood Count 3.51 X10*6/uL (4.20-5.50); Red Cell Distribution Width 12.5 % (11.0-16.0)
[2024-11-17 07:29] LABS: Estimated Average Glucose 114 mg/dL; Hemoglobin A1c % 5.6 % (<6.0)
[2024-11-17 07:33] LABS: Appearance Urine Clear; Color Urine Yellow; Glucose Urine UA Negative (Negative); Leukocyte Esterase Urine Moderate (2+) (Negative); Nitrite Urine Negative (Negative); UMIC TRIGGER UA YES; Urine Blood Trace (Negative); Urine Ketones Negative (Negative); Urine Protein Trace mg/dL (Neg-Trace)
[2024-11-17 07:53] LABS: Alanine Aminotransferase 16 U/L (0-31); Albumin Level 4.1 g/dL (3.5-5.0); Alkaline Phosphatase 47 U/L (39-117); Anion Gap 14 (12-20); Aspartate Amino Transferase 28 U/L (5-31); Bilirubin Direct 0.2 mg/dL (0.0-0.5); Bilirubin Total 0.4 mg/dL (0.0-1.0); Blood Urea Nitrogen 26 mg/dL (9-16); Calcium 9.6 mg/dL (8.4-10.2); Carbon Dioxide 27 mmol/L (22-29); Chloride 106 mmol/L (96-108); Cholesterol 114 mg/dL (<200); Estimated Glomerular Filt Rate 40; Glucose Random 98 mg/dL (60-115); HDL Cholesterol 52 mg/dL (>40); LDL Cholesterol Calculated 51 mg/dL (<100); Potassium 4.9 mmol/L (3.3-5.1); Sodium 142 mmol/L (135-145); Total Protein 6.9 g/dL (6.5-8.0); Triglycerides 58 mg/dL (<150)
[2024-11-17 07:54] LABS: Bacteria Urine None Seen (None Seen); RBC Urine 0-2 /HPF (0-2)
[2024-11-17 08:11] LABS: Thyroid Stimulating Hormone 2.59 uIU/mL (0.32-4.0)
== END 2024-11-17 06:09 | disposition home or self-care (01) ==
LOC: HO.LAB 06:08
PROVIDERS: PCP Internal Medicine; Visit Provider Internal Medicine Nephrology
DX: I10 Essential (primary) hypertension (principal); E11.65 Type 2 diabetes mellitus with hyperglycemia
CPT/HCPCS: 36415; 80048; 80061; 80076; 81001; 83036; 84443; 85027

== ENCOUNTER 2024-11-20 15:13 | Outpatient (AMB) | payer OTHER, SELFPAY ==
--- OUTSIDE RECORDS SUMMARY | 2024-11-20 15:18 | XMS_ITS | Clinical Summary ---
Author Organization [facility] ity Address [address] [place] [address] Care Team Providers Care Neurology Tech Name Role Phone Unavailable Primary Care Provider [...]
--- NOTE | 2024-11-20 15:43 | HO.NEPHOV_ITS ---
Vital Signs 11/20/24 15:44 Height 4 ft 11 in Weight 102 lb BMI 20.6 BP 140/70 H Blood Pressure Location Rt brachial Position Sitting Pulse 70 Pulse Source Pulse Oximeter Pulse Oximetry (%) 97 Oxygen Delivery Method Room Air Intake Visit Reasons: CKD-LVM Intake Note: Patient here for a follow-up. Office Services Associate Required: No Test Facility Engineer: Test Facility Engineer Present Accompanied by: Daughter Allergies No Known Allergies Allergy (Verified 11/20/24 15:47) Do you need a note to return to daycare/school/sports/work: No HPI Comments Details: Shirley was seen in follow-up of her hypertension. She was accompanied by her daughter. Her blood pressure had been well controlled on current medication regimen. She has history of retinopathy. She does not have any orthostatic symptoms, chest pain, shortness of breath, proximal nocturnal dyspnea, orthopnea, pedal edema. She is not taking any nonsteroidal anti-inflammatory medications. She is compliant with her medications and is trying to maintain low-sodium diet. She keeps herself well hydrated. Her blood sugar control is excellent. Her hyperkalemia has resolved. Her renal function is at baseline. [facility] Medical History Serum potassium elevated Encounter for medication review High cholesterol Hypothyroidism Hypertension Surgical History History of cataract surgery Family History Mother High blood pressure High cholesterol Thyroid disease Father High blood pressure Thyroid disease Social History Housing: House Alcohol intake: never Patient Tobacco Use Status: Never used Tobacco e-Cigarette/Vaping Use: Never Used Second Hand Smoke Exposure: No service: No Current occupational status: retired Cognitive needs: No Hearing needs: No Vision needs: Yes (glasses) Review of Systems Const All systems reviewed & are unremarkable except as noted in HPI and below Physical Exam Vital Signs: Last Vital Signs Pulse 70 11/20/24 15:44 BP 140/70 H 11/20/24 15:44 Pulse Ox 97 11/20/24 15:44 Oxygen Delivery Method Room Air 11/20/24 15:44 BMI result Body Mass Index 20.6 Const General: comfortable and no acute distress Orientation/consciousness: patient oriented x3 HEENT Head: Yes normocephalic Mouth: Normal oral and palatal mucosa present Eyes EOM: EOMs intact bilaterally Neck Neck: Yes supple Resp Auscultation: clear to auscultation bilaterally Cardio Jugular venous distension: no JVD Rate: regular rate GI Palpation (GI): Soft to palpation Auscultation: normal bowel sounds General: Yes no CVA tenderness Back/Spine/Pelvis Back: no CVA tenderness Skin General skin exam: no rashes or lesions noted Neuro General: patient oriented x3 and moves all extremities Extrem General: Yes no pedal edema Results Reviewed Nephrology Results: Hgb, (12.0-16.0) 10.5 g/dl L 11/17/24 WBC, (4.8-10.8) 6.0 X10*3/uL 11/17/24 Plt Count, (160-400) 297 X10*3/uL 11/17/24 Sodium, (135-145) 142 mmol/L 11/17/24 Potassium, (3.3-5.1) 4.9 mmol/L 11/17/24 Chloride, (96-108) 106 mmol/L 11/17/24 Carbon Dioxide, (22-29) 27 mmol/L 11/17/24 BUN, (9-16) 26 mg/dL H 11/17/24 Creatinine, (0.5-1.4) 1.28 mg/dL 11/17/24 Calcium, (8.4-10.2) 9.6 mg/dL 11/17/24 Urine Protein, (Neg-Trace) Trace mg/dL 11/17/24 Assessment & Plan Assessment & Plan (1) Hypertension: Code(s): I10 - Essential (primary) hypertension Category: Medical Qualifiers: Hypertension type: essential hypertension Qualified Code(s): I10 - E ssential (primary) hypertension (2) CKD (chronic kidney disease) stage 3, GFR 30-59 ml/min: Code(s): N18.30 - Chronic kidney disease, stage 3 unspecified Category: Medical Qualifiers: Chronic kidney disease stage 3 subtype: stage 3a (GFR 45-59) Qualified Code(s): N18.31 - Chronic kidney disease, stage 3a Plan Shirley has longstanding hypertension. Her blood pressure is well controlled now. She is tolerating medications well. She does have significant proteinuria. She has retinopathy but no clinical signs of heart failure. She has history of hyperkalemia which has been resolved. She is off ACEI. Her BS and BP are at goal now. She is a great candidate for Jardiance after cutting back metformin. I did not make any medication changes today. All her and her daughter's questions were answered. Follow-up appointment was given Orders: Orders Creatinine 6 Months I10 - Essential (primary) hypertension, N18.31 - Chronic kidney disease, stage 3a Blood Urea Nitrogen 6 Months I10 - Essential (primary) hypertension, N18.31 - Chronic kidney disease, stage 3a Electrolytes 6 Months I10 - Essential (primary) hypertension, N18.31 - Chronic kidney disease, stage 3a Protein Creatinine Ratio, Ur 6 Months I10 - Essential (primary) hypertension, N18.31 - Chronic kidney disease, stage 3a Coding Level of Care Code Est Pt Level 4 (75458) Diagnoses Essential hypertension I10 Hypertension type: essential hypertension Stage 3a chronic kidney disease N18.31 Chronic kidney disease stage 3 subtype: stage 3a (GFR 45-59)
[2024-11-20 15:44] VITALS: BP 140/70; PULSE 70; O2SAT 97; BMI 20.6
== END 2024-11-20 16:09 | disposition home or self-care (01) ==
LOC: HO.HKA 15:14
PROVIDERS: PCP Internal Medicine; Visit Provider Internal Medicine Nephrology
DX: I10 Essential (primary) hypertension (principal); N18.31 Chronic kidney disease, stage 3a
CPT/HCPCS: 99214

== ENCOUNTER → 2024-11-20 15:13 | Outpatient (BNVA) | payer OTHER, SELFPAY | PROVIDERS: PCP Internal Medicine; Visit Provider Internal Medicine Nephrology | DX: N18.31 Chronic kidney disease, stage 3a (principal); I10 Essential (primary) hypertension | CPT/HCPCS: 99212 ==

== ENCOUNTER 2025-04-08 06:05 | Outpatient (REF) | payer OTHER, SELFPAY ==
--- OUTSIDE RECORDS SUMMARY | 2025-04-08 06:08 | XMS_ITS | Clinical Summary ---
Author Organization [facility] ity Address [address] [place] [address] Care Team Providers Care Outreach Analyst Name Role Phone Unavailable Primary Care Provider [...] nts (1 - 1-dose 75+ series) 09/05/2022 Depression Screening 05/27/2024 COVID-19 Vaccine ( - 2024-2 6 season) 2025 Influenza Vaccine (#1) 2025 HIB Vaccines Aged Out No longer [...]
[2025-04-08 07:13] LABS: Hematocrit 34.1 % (37.0-47.0); Hemoglobin 11.0 g/dl (12.0-16.0); Mean Corpuscular HGB Conc 32.3 g/dl (31.0-35.0); Mean Corpuscular Hemoglobin 30.1 pg (27.0-33.0); Mean Corpuscular Volume 93.2 fL (80.0-98.0); NRBC Abs Auto 0.000 X10*3/uL (0.0-0.012); NRBC Pct Auto 0.0 /100WBC (0.0-0.2); Platelet Count 308 X10*3/uL (160-400); Red Blood Count 3.66 X10*6/uL (4.20-5.50); White Blood Count 9.0 X10*3/uL (4.8-10.8)
[2025-04-08 07:34] LABS: Appearance Urine Clear; Glucose Urine UA Negative (Negative); PH 5.5 (5.0-9.0); Specific Gravity - Urine 1.015 (1.005-1.025); UMIC TRIGGER UA YES
[2025-04-08 07:49] LABS: Alanine Aminotransferase 10 U/L (0-31); Albumin Level 4.4 g/dL (3.5-5.0); Alkaline Phosphatase 48 U/L (39-117); Anion Gap 14 (12-20); Aspartate Amino Transferase 27 U/L (5-31); Blood Urea Nitrogen 30 mg/dL (9-16); Calcium 9.6 mg/dL (8.4-10.2); Carbon Dioxide 25 mmol/L (22-29); Chloride 108 mmol/L (96-108); Cholesterol 116 mg/dL (<200); Estimated Glomerular Filt Rate 44; HDL Cholesterol 59 mg/dL (>40); Potassium 5.0 mmol/L (3.3-5.1); Sodium 142 mmol/L (135-145); Total Protein 7.3 g/dL (6.5-8.0); Triglycerides 53 mg/dL (<150)
[2025-04-08 07:53] LABS: Thyroid Stimulating Hormone 1.69 uIU/mL (0.32-4.0)
[2025-04-08 08:03] LABS: Microalbum/Creatinine Ratio Ur 321.0 ug/mg cr (<30)
== END 2025-04-08 06:06 | disposition home or self-care (01) ==
LOC: HO.LAB 06:05
PROVIDERS: PCP Internal Medicine; Visit Provider Internal Medicine
DX: E11.65 Type 2 diabetes mellitus with hyperglycemia (principal)
CPT/HCPCS: 36415; 80048; 80061; 80076; 81001; 82043; 82570; 83036; 84443; 85027

== ENCOUNTER 2025-04-14 14:47 | Outpatient (AMB) | payer OTHER, SELFPAY ==
--- NOTE | 2025-04-14 15:15 | A.OFFPC_ITS ---
Vital Signs 04/14/25 15:16 Height 4 ft 11 in Weight 106 lb 2 oz BMI 21.4 BP 126/62 Blood Pressure Location Lt brachial Position Sitting Pulse 61 Pulse Source Pulse Oximeter Temp 97.3 F Temp Source Temporal Artery Scan Pulse Oximetry (%) 98 Oxygen Delivery Method Room Air Intake Visit Reasons: 6mth f/u Intake Note: Patient is here to follow up on DM, CKD, HTN. Construction Carpenter Required: Yes Construction Carpenter Language: Secondary School Principal Name: Jessica (daughter) Information Interpreted: non-clinical & clinical (Pt decline cross country/track and field coach service prefer daughter to translate) Warehouser: Present Accompanied by: Daughter Allergies No Known Allergies Allergy (Verified 04/14/25 15:16) Tobacco use date assessed: 04/14/25 Fall risk assessment: No Falls in past year Last assessed Fall Risk: 04/14/25 Dental Screening Dental Screen Date: 09/24/24 HPI HPI Comments History of Present Illness Details History of Present Illness - The patient is a 79-year-old female pr esenting for a general follow-up visit and influenza vaccination. 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 - She has undergone two surgeries on her left eye within the last month and a half. - Post-operatively, she was required to keep her head down, which limited her ability to leave the house. - She is currently using eye drops twice a day this week, which will be tapered to once a day the following week, and she has an upcoming follow-up appointment. - Recent blood work from April 08 s howed no anemia and normal glucose levels. - The patient is reportedly adherent to her medication regimen and does not require any refills at this time. Social History - The patient lives with her brother. Results - Labs: Recent blood work from April 08 revealed no anemia and good glucose levels. PENDING SALE TO [facility] Medical History Serum potassium elevated Encounter for medication review High cholesterol Hypothyroidism Hypertension Surgical History (Updated 04/14/25 @ 15:23 by JADE Willingham) History of eye surgery History of cataract surgery Family History Mother High blood pressure High cholesterol Thyroid disease Father High blood pressure Thyroid disease Social History Housing: House Alcohol intake: never Patient Tobacco Use Status: Never used Tobacco e-Cigarette/Vaping Use: Never Used Second Hand Smoke Exposure: No service: No Current occupational status: retired Cognitive needs: No Hearing needs: No Vision needs: Yes (glasses) Questionnaire Thrive Questionnaire Date Thrive assessed: 09/22/24 I am a: Patient What is your living situation today?: I have a steady place to live Within the past 12 months, did the food you bought not last and you didn't have the money to get more?: Never true Within the past 12 months, did you worry whether your food would run out before you got money to buy more?: Never true Do you have trouble paying for medicines?: No Do you have trouble getting transportation to medical appointments?: No Do you have trouble paying your heating and electricity bill?: No Do you have trouble taking care of your child, family member or friend?: No Do you have trouble with day-to-day activities such as bathing, preparing meals, shopping, managing finances, etc.?: No Are you currently unemployed and looking for a job?: No Are you interested in more education?: No Please select the resources that you would like help with: None Currently or been in a relationship where the following occur: No concerns reported THRIVE Score: 0 JODIE-7 AMB Questionnaire JODIE-7 Date JODIE - 7 assessed: 09/24/24 Source: Developed by Drs. Domingo Beltrán, Adriana Serrano, Steve De La Cruz and colleagues, with an educational yodit from [employer]. Review of Systems Narrative Review of Systems - General: Denies any acute problems. - Ophthalmologic: Reports history of a retinal detachment in the left eye secondary to diabetes, requiring two recent surgeries. Physical exam (Primary Care) Vital Signs: Last Vital Signs Temp 97.3 F 04/14/25 15:16 Pulse 61 04/14/25 15:16 BP 126/62 04/14/25 15:16 Pulse Ox 98 04/14/25 15:16 Oxygen Delivery Method Room Air 04/14/25 15:16 BMI result Body Mass Index 21.4 Tobacco/Smoking Status: Tobacco use Status Tobacco use date assessed 04/14/25 04/14/25 15:18 Patient Tobacco Use Status Never used Tobacco 04/14/25 15:18 e-Cigarette/Vaping Use Never Used 04/14/25 15:18 Thrive Assessment: Date of Thrive Assessment Date Thrive assessed 09/22/24 04/14/25 15:18 Currently or been in a relationship where the following occur: No concerns reported Narrative Physical Exam General: Appearance normal, both eyes and all related structures, but patient has been having problems with the left eye due to diabetes and has undergone two surgeries in the past month and a half. Nutritional Appearance: Well nourished Orientation/consciousness: Patient oriented x3 Limitations: No limitations Head: Normal to inspection, but patient needs to keep head down due to recent eye surgery. Neck: Normal visual inspection Chest: Normal palpation of entire chest wall Respiratory: Normal respiratory effort Neurology: Patient oriented x3 Coding Level of Care Code Est Pt Level 4 (36369) Complex EM visit Add On G2211 Diagnoses Type 2 diabetes mellitus with hyperglycemia E11.65 Assessment & Plan Assessment & Plan (1) Type 2 diabetes mellitus with hyperglycemia: Code(s): E11.65 - Type 2 diabetes mellitus with hyperglycemia Category: Medical Plan Plan - Administer the influenza vaccine today. - Provide a paper prescription for upcoming blood work as requested. - Patient to continue current medications as prescribed, with no refills needed at this time. - Patient to continue eye drops with the current taper schedule and maintain follow-up with ophthalmology. Discussion Notes I reviewed the patient's recent lab results from April 08, confirming there was no anemia and her glucose levels were good. We discussed administering the influenza vaccine during today's visit. I will provide a paper order for her next blood work, per the family's request, due to a past issue with an electronic submission at the lab. We briefly touched on her recent eye surgeries and ongoing ophthalmology care. Patient Instructions - You will receive your flu shot today in the office. - Continue to take all of your medications as they are currently prescribed. - Use your eye drops twice a day this week, and then reduce to once a day next week as directed. - We will provide you with a paper order for your next blood test. - Make sure to attend your upcoming eye doctor appointment. Orders: Orders Basic Metabolic Panel 08/24/25 E11.65 - Type 2 diabetes mellitus with hyperglycemia, I10 - Essential (primary) hypertension Lipid Panel 08/24/25.65 - Type 2 diabetes mellitus with hyperglycemia, I10 - Essential (primary) hypertension Hemoglobin A1c 08/24/25.65 - Type 2 diabetes mellitus with hyperglycemia, I10 - Essential (primary) hypertension Thyroid Stimulating Hormone 08/24/25.65 - Type 2 diabetes mellitus with hyperglycemia, I10 - Essential (primary) hypertension Complete Blood Count no Diff 08/24/25.65 - Type 2 diabetes mellitus with hyperglycemia, I10 - Essential (primary) hypertension UA and rflx microscopic 08/24/25.65 - Type 2 diabetes mellitus with hyperglycemia, I10 - Essential (primary) hypertension Microalbumin, Random (w Creat) 08/24/25.65 - Type 2 diabetes mellitus with hyperglycemia, I10 - Essential (primary) hypertension
[2025-04-14 15:16] VITALS: BP 126/62; PULSE 61; TEMP 36.3; O2SAT 98; BMI 21.4
--- OUTSIDE RECORDS SUMMARY | 2025-04-15 03:19 | XMS_ITS | Clinical Summary ---
Author Organization [facility] Address [address] [facility] [address] [place] [address] Phone Care Team Providers Care Barback Name Role Phone Unavailable Primary Care Provider [...] Visual Foot Exam 06/27/2020 Influenza Vaccine (#1) 2025 Hepatitis B Vaccine Aged Out No longe r eligible based on patient's age to complete this topic Insurance [facility] [employer] [facility] ([id number]) ([id number])
== END 2025-04-14 15:37 | disposition home or self-care (01) ==
LOC: HO.HMCH 14:48
PROVIDERS: PCP Internal Medicine; Visit Provider Internal Medicine
DX: E11.65 Type 2 diabetes mellitus with hyperglycemia (principal)

== ENCOUNTER → 2025-04-14 14:47 | Outpatient (BNVA) | payer OTHER, SELFPAY | PROVIDERS: PCP Internal Medicine; Visit Provider Internal Medicine | DX: E11.65 Type 2 diabetes mellitus with hyperglycemia (principal) | CPT/HCPCS: 99212 ==

== ENCOUNTER 2025-05-04 06:08 | Outpatient (REF) | payer OTHER, SELFPAY ==
--- OUTSIDE RECORDS SUMMARY | 2025-05-04 06:10 | XMS_ITS | Clinical Summary ---
Author Organization [facility] [employer] [facility] ity Address [address] [place] [address] Care Team Providers Care Tobacco Stemmer Machine Name Role Phone Unavailable Primary Care Provider [...] complete this topic RSV Immunization Patients Un inle 20 months Aged Out No longer eligible b ased on patient's age to complete this topic Varicella Vaccines Aged Out No longer eligible based on patient's age to complete this topic
[2025-05-04 07:49] LABS: Anion Gap 15 (12-20); Blood Urea Nitrogen 31 mg/dL (9-16); Carbon Dioxide 27 mmol/L (22-29); Chloride 105 mmol/L (96-108); Estimated Glomerular Filt Rate 44; Potassium 4.8 mmol/L (3.3-5.1); Sodium 142 mmol/L (135-145)
[2025-05-04 08:18] LABS: Protein/Creatinine Ratio, Ur 0.87 (<0.2); Total Protein Urine Random 15 mg/dL (<12)
== END 2025-05-04 06:09 | disposition home or self-care (01) ==
LOC: HO.LAB 06:08
PROVIDERS: PCP Internal Medicine; Visit Provider Internal Medicine Nephrology
DX: I12.9 Hypertensive chronic kidney disease with stage 1 through stage 4 chronic kidney disease, or unspecified chronic kidney disease (principal); E11.22 Type 2 diabetes mellitus with diabetic chronic kidney disease; N18.31 Chronic kidney disease, stage 3a
CPT/HCPCS: 36415; 80051; 82565; 82570; 84156; 84520

== ENCOUNTER 2025-05-12 15:04 | Outpatient (AMB) | payer OTHER, SELFPAY ==
--- NOTE | 2025-05-12 15:43 | HO.NEPHOV_ITS ---
Vital Signs 05/12/25 15:44 Height 4 ft 11 in Weight 105 lb 4 oz BMI 21.3 BP 134/60 Blood Pressure Location Lt brachial Position Sitting Pulse 63 Pulse Source Pulse Oximeter Pulse Oximetry (%) 97 Oxygen Delivery Method Room Air Intake Visit Reasons: 6 MO [facility] Airplane Electrical Repairer Required: Yes Airplane Electrical Repairer Language: Gear Grinding Machine Operator Services: Airplane Electrical Repairer Offered & Declined ([facility] Airplane Electrical Repairer services refused ) Accompanied by: Daughter Allergies No Known Allergies Allergy (Verified 05/12/25 15:43) HPI Comments Details: Shirley was seen in follow-up of her hypertension. She was accompanied by her daughter. Her blood pressure had been well controlled on current medication regimen. She has history of retinopathy. She does not have any orthostatic symptoms, chest pain, shortness of breath, proximal nocturnal dyspnea, orthopnea, pedal edema. She is not taking any nonsteroidal anti-inflammatory medications. She is compliant with her medications and is trying to maintain low-sodium diet. She keeps herself well hydrated. Her blood sugar control is excellent. Her hyperkalemia has resolved. Her renal function is at baseline. [facility] Medical History Serum potassium elevated Encounter for medication review High cholesterol Hypothyroidism Hypertension Surgical History History of eye surgery History of cataract surgery Family History Mother High blood pressure High cholesterol Thyroid disease Father High blood pressure Thyroid disease Social History Housing: House Alcohol intake: never Patient Tobacco Use Status: Never used Tobacco e-Cigarette/Vaping Use: Never Used Second Hand Smoke Exposure: No service: No Current occupational status: retired Cognitive needs: No Hearing needs: No Vision needs: Yes (glasses) Review of Systems Const All systems reviewed & are unremarkable except as noted in HPI and below Physical Exam Vital Signs: Last Vital Signs Pulse 63 05/12/25 15:44 BP 134/60 05/12/25 15:44 Pulse Ox 97 05/12/25 15:44 Oxygen Delivery Method Room Air 05/12/25 15:44 BMI result Body Mass Index 21.3 Const General: comfortable and no acute distress Orientation/consciousness: patient oriented x3 HEENT Head: Yes normocephalic Mouth: Normal oral and palatal mucosa present Eyes EOM: EOMs intact bilaterally Neck Neck: Yes supple Resp Auscultation: clear to auscultation bilaterally Cardio Jugular venous distension: no JVD Rate: regular rate GI Palpation (GI): Soft to palpation Auscultation: normal bowel sounds General: Yes no CVA tenderness Back/Spine/Pelvis Back: no CVA tenderness Skin General skin exam: no rashes or lesions noted Neuro General: patient oriented x3 and moves all extremities Extrem General: Yes no pedal edema Results Reviewed Nephrology Results: Hgb, (12.0-16.0) 11.0 g/dl L 04/08/25 WBC, (4.8-10.8) 9.0 X10*3/uL 04/08/25 Plt Count, (160-400) 308 X10*3/uL 04/08/25 Sodium, (135-145) 142 mmol/L 05/04/25 Potassium, (3.3-5.1) 4.8 mmol/L 05/04/25 Chloride, (96-108) 105 mmol/L 05/04/25 Carbon Dioxide, (22-29) 27 mmol/L 05/04/25 BUN, (9-16) 31 mg/dL H 05/04/25 Creatinine, (0.5-1.4) 1.19 mg/dL 05/04/25 Calcium, (8.4-10.2) 9.6 mg/dL 04/08/25 Urine Protein, (Neg-Trace) 30 (1+) mg/dL H 04/08/25 Urine Creatinine 17.32 mg/dL 05/04/25 Protein/Creatinin Ratio, (<0.2) 0.87 H 05/04/25 Assessment & Plan Assessment & Plan (1) Hypertension: Code(s): I10 - Essential (primary) hypertension Category: Medical Qualifiers: Hypertension type: essential hypertension Qualified Code(s): I10 - Essential (primary) hypertension (2) CKD (chronic kidney disease) stage 3, GFR 30-59 ml/min: Code(s): N18.30 - Chronic kidney disease, stage 3 unspecified Category: Medical Qualifiers: Chronic kidney disease stage 3 subtype: stage 3a (GFR 45-59) Qualified Code(s): N18.31 - Chronic kidney disease, stage 3a (3) Diabetic nephropathy: Code(s): E11.21 - Type 2 diabetes mellitus with diabetic nephropathy Category: Medical Qualifiers: Diabetes mellitus type: type 2 Qualified Code(s): E11.21 - Type 2 diabetes mellitus with diabetic nephropathy Maddy Watson has longstanding hypertension. Her blood pressure is well controlled now. She is tolerating medications well. She does have significant proteinuria. She has retinopathy but no clinical signs of heart failure. She has history of hyperkalemia which has been resolved. She is off ACEI. Her BS and BP are at goal now. I started her on Jardiance 10 mg & cut back metformin to 500 mg bid. I did not make any other medication changes today. All her and her daughter's questions were answered. Follow-up appointment was given Orders: Orders Blood Urea Nitrogen 3 Months E11.21 - Type 2 diabetes mellitus with diabetic nephropathy, I10 - Essential (primary) hypertension, N18.31 - Chronic kidney disease, stage 3a Creatinine 3 Months E11.21 - Type 2 diabetes mellitus with diabetic nephropathy, I10 - Essential (primary) hypertension, N18.31 - Chronic kidney disease, stage 3a Protein Creatinine Ratio, Ur 3 Months E11.21 - Type 2 diabetes mellitus with diabetic nephropathy, I10 - Essential (primary) hypertension, N18.31 - Chronic kidney disease, stage 3a Electrolytes 3 Months E11.21 - Type 2 diabetes mellitus with diabetic nephropathy, I10 - Essential (primary) hypertension, N18.31 - Chronic kidney disease, stage 3a Medications: New empagliflozin (Jardiance) 10 mg PO DAILY 30 tabs 6RF Coding Level of Care Code Est Pt Level 4 (85885) Diagnoses Essential hypertension I10 Hypertension type: essential hypertension Stage 3a chronic kidney disease N18.31 Chronic kidney disease stage 3 subtype: stage 3a (GFR 45-59) Diabetic nephropathy associated with type 2 diabetes mellitus E11.21 Diabetes mellitus type: type 2
[2025-05-12 15:44] VITALS: BP 134/60; PULSE 63; O2SAT 97; BMI 21.3
--- OUTSIDE RECORDS SUMMARY | 2025-05-12 20:02 | XMS_ITS | Clinical Summary ---
Author Organization [facility] ity Address [address] [place] [address] Care Team Providers Care Cloth Painter Name Role Phone Unavailable Primary Care Provider [...]
--- OUTSIDE RECORDS SUMMARY | 2025-05-12 20:02 | XMS_ITS | Clinical Summary ---
Author Organization [facility] Address [address] [facility] [address] [place] [address] Phone Care Team Providers Care Semiconductor Packages Platemaker Name Role Phone Unavailable Primary Care Provider [...] this topic Insurance [facility] [employer] [facility] ([id number]) ([id number])
== END 2025-05-12 16:04 | disposition home or self-care (01) ==
LOC: HO.HKA 15:05
PROVIDERS: PCP Internal Medicine; Visit Provider Internal Medicine Nephrology
DX: I10 Essential (primary) hypertension (principal); N18.31 Chronic kidney disease, stage 3a; E11.21 Type 2 diabetes mellitus with diabetic nephropathy
CPT/HCPCS: 99214

== ENCOUNTER → 2025-05-12 15:04 | Outpatient (BNVA) | payer OTHER, SELFPAY | PROVIDERS: PCP Internal Medicine; Visit Provider Internal Medicine Nephrology | DX: I12.9 Hypertensive chronic kidney disease with stage 1 through stage 4 chronic kidney disease, or unspecified chronic kidney disease (principal); N18.31 Chronic kidney disease, stage 3a; E11.22 Type 2 diabetes mellitus with diabetic chronic kidney disease; Z79.84 Long term (current) use of oral hypoglycemic drugs | CPT/HCPCS: 99212 ==